=== PATIENT | male | born 1955 | race Caucasian/White ===

== ENCOUNTER 2018-02-14 08:34 | Emergency (ER) | payer MEDICARE ==
[2018-02-14] MEDS ORDERED: DUONEB 0.5-3 MG/3 ml Neb IH ONE ×2 (09:04→09:37)
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
[2018-02-14 10:41] VITALS: BP 177/90; PULSE 80; O2SAT 97
== END 2018-02-14 10:42 | disposition home or self-care (01) ==
LOC: ED 08:34
DX: S46.911A Strain of unspecified muscle, fascia and tendon at shoulder and upper arm level, right arm, initial encounter (principal); S16.1XXA Strain of muscle, fascia and tendon at neck level, initial encounter; M25.511 Pain in right shoulder; M54.2 Cervicalgia; J44.9 Chronic obstructive pulmonary disease, unspecified; E11.9 Type 2 diabetes mellitus without complications; V47.5XXA Car driver injured in collision with fixed or stationary object in traffic accident, initial encounter; Z79.01 Long term (current) use of anticoagulants; Z79.899 Other long term (current) drug therapy; Z79.4 Long term (current) use of insulin
CPT/HCPCS: 36000; 71045; 72040; 73030; 93005; 94150; 94640; 99284; A9270-GY

== ENCOUNTER 2018-06-28 08:00 | Day surgery (SDC) | payer MEDICARE ==
[2012-05-09 18:02] VITALS: BP 160/90
== END 2018-06-28 08:01 | disposition home or self-care (01) ==
LOC: SDC 08:00
PROVIDERS: ATTEND Family Medicine
DX: Z53.9 Procedure and treatment not carried out, unspecified reason (principal)

== ENCOUNTER 2018-08-27 15:57 | Observation (INO) | payer MEDICARE ==
[2018-08-27] MEDS ORDERED: Zofran 4 MG/2 ML VIAL IV ONE (17:07)
[2018-08-27] MEDS ORDERED: Pepcid 20 MG VIAL IV ONE ×2 (17:07→17:22)
[2018-08-27] MEDS ORDERED: Sodium Chloride 0.9% 1000 ML 1,000 ML IV STA ×2 (17:07→18:44)
--- NOTE | 2018-08-27 17:12 | ERPHSYRPT ---
- History of Present Illness Time Seen by Provider: 08/27/18 16:44 Historian: patient Exam Limitations: no limitations Patient Subjective Stated Complaint: sudden onset diarrhea since last night.. EMS states ther was diarrhea all over the bathroom at his home Triage Nursing Assessment: alert and in no distress.. generalized abdominal pain. diarrhea starting since last night. has been around his grandkids who have had the same. + BSx4. Physician History: C/o diffuse abdominal cramps, and diarrhea, nausea since last night, he denies fever, chills, bloody or black stools, no urinary complaints. Timing/Duration: yesterday Activities at Onset: none Quality: cramping Abdominal Pain Onset Location: generalized abdomen Pain Radiation: no radiation Severity of Pain-Max: severe Severity of Pain-Current: moderate Modifying Factors: Improves With: nothing Associated Symptoms: diarrhea, loss of appetite, nausea Previous symptoms: no prior history Allergies/Adverse Reactions: Penicillins Allergy (Severe, Verified 02/06/16 09:55) Hives morphine Adverse Reaction (Mild, Verified 02/06/16 09:55) "makes me loopy" Home Medications: Divalproex Sodium [Depakote] 250 mg PO BID 08/06/15 [History] Clopidogrel Bisulfate 75 mg [PLAVIX 75 MG Tablet] 75 mg PO DAILY 02/06/16 [History] HydrALAzine HCL 25 MG TAB [Apresoline 25 MG TABLET] 25 mg PO TID 02/06/16 [History] Insulin Aspart [Novolog Flexpen] 5 unit SQ TID 02/06/16 [History] Levothyroxine Sodium 25 Mcg [Synthroid 25 Mcg] 25 mcg PO DAILY 02/06/16 [ History] Magnesium Oxide 400 mg [Mag-Ox 400] 400 mg PO BID 02/06/16 [History] Aspirin [Aspirin EC] 81 mg PO DAILY 02/14/18 [History] Hx Tetanus, Diphtheria Vaccination/Date Given: Yes Hx Influenza Vaccination/Date Given: Yes Hx Pneumococcal Vaccination/Date Given: No - Review of Systems Constitutional: No Symptoms Ears, Nose, & Throat: No Symptoms Respiratory: No Symptoms Cardiac: No Symptoms Abdominal/Gastrointestinal: Abdominal Pain, Nausea, Diarrhea Genitourinary Symptoms: No Symptoms Musculoskeletal: No Symptoms Skin: No Symptoms Neurological: No Symptoms All Other Systems: Reviewed and Negative - Past Medical History Pertinent Past Medical History: Yes Neurological History: Stroke ENT History: No Pertinent History Cardiac History: Hypertension, Other Respiratory History: No Pertinent History Endocrine Medical History: Diabetes Type II Musculoskeletal History: No Pertinent History GI Medical History: No Pertinent History, Gallbladder Disease History: No Pertinent History Psycho-Social History: Depression Male Reproductive Disorders: No Pertinent History Other Medical History: He notes 2 CVA two days in a row. CABG 5x in 1999 - Past Surgical History Past Surgical History: Yes Neuro Surgical History: Neurological Surgery Cardiac: CABG Respiratory: No Pertinent History Gastrointestinal: Cholecystectomy Genitourinary: No Pertinent History Musculoskeletal: No Pertinent History Male Surgical History: No Pertinent History - Social History Smoking Status: Never smoker How long have you smoked: years Exposure to second hand smoke: No Drug Use: none Patient Lives Alone: No - Nursing Vital Signs Nursing Vital Signs: Initial Vital Signs Temperature 98.4 F 08/27/18 16:03 Pulse Rate 63 08/27/18 16:03 Respiratory Rate 18 08/27/18 16:03 Blood Pressure 114/70 08/27/18 16:03 O2 Sat by Pulse Oximetry 96 08/27/18 16:03 Pain Scale Pain Intensity 0 - Physical Exam General Appearance: no apparent distress Eye Exam: eyes nml inspection Ears, Nose, Throat Exam: normal ENT inspection, pharynx normal Neck Exam: normal inspection, non-tender, supple, No JVD Respiratory Exam: normal breath sounds, lungs clear, airway intact, No chest tenderness Cardiovascular Exam: regular rate/rhythm, normal heart sounds, normal peripheral pulses, capillary refill <2 sec, No murmur Gastrointestinal/Abdomen Exam: soft, normal bowel sounds, tenderness (diffuse), No distention, No mass, No guarding, No ecchymosis, No pulsatile mass, No rebound, No hernia, No organomegaly Back Exam: normal inspection, No CVA tenderness, No vertebral tenderness Extremity Exam: normal inspection Neurologic Exam: alert, oriented x 3, cooperative, normal mood/affect Skin Exam: normal color, warm, dry, No rash Lymphatic Exam: No adenopathy SpO2 Interpretation: normal SpO2: 96 O2 Delivery: Room Air - Course Nursing assessment & vital signs reviewed: Yes - CT Exams Abdomen/Pelvis CT Interpretation: Tele-radiologist Report, Other (colitis) Ordered Tests: Active Orders 24 hr Category Date Time Status ABDOMEN AND PELVIS W/0 CONTRAS [CT] Stat Exams 08/27/18 17:08 Taken CBC W DIFF Stat Lab 08/27/18 17:34 Completed CMP Stat Lab 08/27/18 17:34 Completed LIPASE Stat Lab 08/27/18 17:34 Completed Lactic Acid Stat Lab 08/27/18 17:07 Completed Occult Blood, Other Screening Stat Lab 08/27/18 18:09 Completed UA W/RFX UR CULTURE Stat Lab 08/27/18 18:09 Completed Urine Triage Profile Stat Lab 08/27/18 18:09 Completed Medication Summary Generic Name Dose Route Start Last Admin Trade Name Freq PRN Reason Stop Dose Admin Potassium Chloride 20 meq in 100 mls @ 50 mls/hr 08/27/18 18:23 08/27/18 18: 50 Potassium Chloride 20 Meq In Water 100ml IV 08/27/18 20:22 50 mls/hr STAT ONE Administration Sodium Chloride 1,000 mls @ 999 mls/hr 08/27/18 18:44 08/27/18 18:50 Sodium Chloride 0.9% 1000 Ml IV 08/27/18 19:44 999 mls/hr .Q1H1M STA Administration Metronidazole 500 mg in 100 mls @ 200 mls/hr 08/27/18 19:29 Flagyl 500 Mg Ivpb IV 08/27/18 19:58 STAT STA Levofloxacin/Dextrose 500 mg in 100 mls @ 100 mls/hr 08/27/18 19:29 Levofloxacin 500mg/100ml D5w IV 08/27/18 20:28 STAT STA Discontinued Medications Generic Name Dose Route Start Last Admin Trade Name Freq PRN Reason Stop Dose Admin Famotidine 20 mg 08/27/18 17:07 08/27/18 17:27 Pepcid 20 Mg Vial IV 08/27/18 17:08 20 mg STAT ONE Administration Famotidine Confirm 08/27/18 17:22 Pepcid 20 Mg Vial Administered 08/27/18 17:23 Dose 20 mg IV .STK-MED ONE Sodium Chloride 1,000 mls @ 999 mls/hr 08/27/18 17:07 08/27/18 18:28 Sodium Chloride 0.9% 1000 Ml IV 08/27/18 18:07 Infused .Q1H1M STA Infusion Sodium Chloride Confirm 08/27/18 17:22 Sodium Chloride 0.9% 1000 Ml Administered 08/27/18 17:23 Dose 1,000 mls @ ud .ROUTE .STK-MED ONE Sodium Chloride Confirm 08/27/18 18:46 Sodium Chloride 0.9% 1000 Ml Administered 08/27/18 18:47 Dose 1,000 mls @ ud .ROUTE .STK-MED ONE Potassium Chloride Confirm 08/27/18 18:46 Potassium Chloride 20 Meq In Water 100ml Administered 08/27/18 18:47 Dose 100 mls @ ud IV .STK-MED ONE Ondansetron HCl 4 mg 08/27/18 17:07 08/27/18 17:27 Zofran 4 Mg/2 Ml Vial IV 08/27/18 17:08 4 mg STAT ONE Administration Ondansetron HCl Confirm 08/27/18 17:22 Zofran 4 Mg/2 Ml Vial Administered 08/27/18 17:23 Dose 4 mg .ROUTE .STK-MED ONE Lab/Rad Data: Laboratory Result Diagrams 08/27/18 17:34 08/27/18 17:34 Laboratory Results 08/27/18 08/27/18 08/27/18 Range/Units 18:09 18:09 18:09 WBC (4.0-10.5) K/mm3 RBC (4.1-5.6) M/mm3 Hgb (12.5-18.0) gm/dl Hct (42-50) % MCV (78-100) fl MCH (26-32) pg MCHC (32-36) g/dl RDW (11.5-14.0) % Plt Count (150-450) K/mm3 MPV (6-9.5) fl Gran % (36.0-66.0) % Eos # (Auto) (0-0.5) Absolute Lymphs (auto) (1.0-4.6) Absolute Monos (auto) (0.0-1.3) Lymphocytes % (24.0-44.0) % Monocytes % (0.0-12.0) % Eosinophils % (0.00-5.0) % Basophils % (0.0-0.4) % Absolute Granulocytes (1.4-6.9) Basophils # (0-0.4) Sodium (137-145) mmol/L Potassium (3.5-5.1) mmol/L Chloride (98-107) mmol/L Carbon Dioxide (22-30) mmol/L Anion Gap (5-15) MEQ/L BUN (9-20) mg/dL Creatinine (0.66-1.25) mg/dL Estimated GFR ML/MIN Glucose (74-106) mg/dL Lactic Acid (0.4-2.0) Calcium (8.4-10.2) mg/dL Total Bilirubin (0.2-1.3) mg/dL AST (17-59) U/L ALT (0-50) U/L Alkaline Phosphatase (38-126) U/L Serum Total Protein (6.3-8.2) g/dL Albumin (3.5-5.0) g/dL Lipase (23-300) U/L Urine Color DARK YELLOW (YELLOW) Urine Appearance SLIGHTLY CLOUDY (CLEAR) Urine pH 5.0 (5-6) Ur Specific [place] 1.020 (1.005-1.025) Urine Protein 100 (Negative) Urine Ketones NEGATIVE (NEGATIVE) Urine Blood NEGATIVE (0-5) Hugo/ul Urine Nitrite NEGATIVE (NEGATIVE) Urine Bilirubin NEGATIVE (NEGATIVE) Urine Urobilinogen NEGATIVE (0-1) mg/dL Ur Leukocyte Esterase NEGATIVE (NEGATIVE) Urine WBC (Auto) 0-2 (0-5) /HPF Urine RBC (Auto) 0-2 (0-2) /HPF U Hyaline Cast (Auto) 11-25 (0-2) /LPF U Epithel Cells (Auto) NONE (FEW) /HPF Urine Bacteria (Auto) RARE (NEGATIVE) /HPF Urine Mucus (Auto) SLIGHT (NEGATIVE) /HPF Urine Culture Reflexed NO (NO) Urine Glucose NEGATIVE (NEGATIVE) mg/dL Stool Occult Blood NEGATIVE (Negative) Urine Opiates Level NEGATIVE (NEGATIVE) Ur Methadone NEGATIVE (NEGATIVE) Urine Barbiturates NEGATIVE (NEGATIVE) Ur Phencyclidine (PCP) NEGATIVE (NEGATIVE) Urine Amphetamine NEGATIVE (NEGATIVE) U Benzodiazepine Level NEGATIVE (NEGATIVE) Urine Cocaine NEGATIVE (NEGATIVE) Urine Marijuana (THC) NEGATIVE (NEGATIVE) 08/27/18 08/27/18 08/27/18 Range/Units 17:34 17:34 17:07 WBC 5.4 (4.0-10.5) K/mm3 RBC 4.39 (4.1-5.6) M/mm3 Hgb 13.3 (12.5-18.0) gm/dl Hct 38.5 L (42-50) % MCV 87.7 (78-100) fl MCH 30.3 (26-32) pg MCHC 34.5 (32-36) g/dl RDW 12.7 (11.5-14.0) % Plt Count 167 (150-450) K/mm3 MPV 10.9 H (6-9.5) fl Gran % 77.7 H (36.0-66.0) % Eos # (Auto) 0.08 (0-0.5) Absolute Lymphs (auto) 0.62 L (1.0-4.6) Absolute Monos (auto) 0.50 (0.0-1.3) Lymphocytes % 11.4 L (24.0-44.0) % Monocytes % 9.2 (0.0-12.0) % Eosinophils % 1.5 (0.00-5.0) % Basophils % 0.2 (0.0-0.4) % Absolute Granulocytes 4.22 (1.4-6.9) Basophils # 0.01 (0-0.4) Sodium 138 (137-145) mmol/L Potassium 3.1 L (3.5-5.1) mmol/L Chloride 101 (98-107) mmol/L Carbon Dioxide 25 (22-30) mmol/L Anion Gap 14.9 (5-15) MEQ/L BUN 39 H (9-20) mg/dL Creatinine 1.69 H (0.66-1.25) mg/dL Estimated GFR 43.6 ML/MIN Glucose 143 H (74-106) mg/dL Lactic Acid 1.3 (0.4-2.0) Calcium 8.8 (8.4-10.2) mg/dL Total Bilirubin 0.50 (0.2-1.3) mg/dL AST 18 (17-59) U/L ALT 14 (0-50) U/L Alkaline Phosphatase 73 (38-126) U/L Serum Total Protein 7.1 (6.3-8.2) g/dL Albumin 4.0 (3.5-5.0) g/dL Lipase 32 (23-300) U/L Urine Color (YELLOW) Urine Appearance (CLEAR) Urine pH (5-6) Ur Specific [place] (1.005-1.025) Urine Protein (Negative) Urine Ketones (NEGATIVE) Urine Blood (0-5) Hugo/ul Urine Nitrite (NEGATIVE) Urine Bilirubin (NEGATIVE) Urine Urobilinogen (0-1) mg/dL Ur Leukocyte Esterase (NEGATIVE) Urine WBC (Auto) (0-5) /HPF Urine RBC (Auto) (0-2) /HPF U Hyaline Cast (Auto) (0-2) /LPF U Epithel Cells (Auto) (FEW) /HPF Urine Bacteria (Auto) (NEGATIVE) /HPF Urine Mucus (Auto) (NEGATIVE) /HPF Urine Culture Reflexed (NO) Urine Glucose (NEGATIVE) mg/dL Stool Occult Blood (Negative) Urine Opiates Level (NEGATIVE) Ur Methadone (NEGATIVE) Urine Barbiturates (NEGATIVE) Ur Phencyclidine (PCP) (NEGATIVE) Urine Amphetamine (NEGATIVE) U Benzodiazepine Level (NEGATIVE) Urine Cocaine (NEGATIVE) Urine Marijuana (THC) (NEGATIVE) - Progress Progress: improved Progress Note: 08/27/18 19:35 We reviewed his results, he was started on iv Potassium replacement, saline bolus besides Zofran, also iv Flagyl and Levaquin, called Dr Page, discussed his results and his current condition, he agreed to admit him for observation. Patient and his family was informed and agreed. Discussed with : Camilo Will see patient in: hospital (observation) Counseled pt/family regarding: lab results, diagnosis, rad results - Departure Departure Disposition: Observation Clinical Impression: Colitis, Hypokalemia, Dehydration Condition: Stable Critical Care Time: No Referrals: [facility] [employer] [Primary Care Provider] -
[2018-08-27] MEDS ORDERED: Zofran 4 MG/2 ML VIAL ONE (17:22)
[2018-08-27] MEDS ORDERED: Sodium Chloride 0.9% 1000 ML 1,000 ML ONE ×2 (17:22→18:46)
[2018-08-27 17:38] LABS: BASOPHIL % 0.2 % (0.0-0.4); Basophil (Absolute #) 0.01 (0-0.4); Eosinophil % 1.5 % (0.00-5.0); Eosinophil (Absolute #) 0.08 (0-0.5); Granulocyte Absolute (ANC) 4.22 (1.4-6.9); Granulocytes % 77.7 % (36.0-66.0); Hematocrit 38.5 % (42-50); Hemoglobin 13.3 gm/dl (12.5-18.0); Lymphocyte (Absolute #) 0.62 (1.0-4.6); Lymphocytes % 11.4 % (24.0-44.0); Mean Cell Volume 87.7 fl (78-100); Mean Corpuscular Hemoglobin 30.3 pg (26-32); Mean Corpuscular Hgb Concent. 34.5 g/dl (32-36); Mean Platelet Volume 10.9 fl (6-9.5); Monocytes % 9.2 % (0.0-12.0); Platelet Count 167 K/mm3 (150-450); Red Blood Count 4.39 M/mm3 (4.1-5.6); Red Cell Distribution Width 12.7 % (11.5-14.0); White Blood Count 5.4 K/mm3 (4.0-10.5)
[2018-08-27 17:49] LABS: ANION GAP 14.9 MEQ/L (5-15); BILIRUBIN,TOTAL 0.5 mg/dL (0.2-1.3); Calcium 8.8 mg/dL (8.4-10.2); Creatinine 1 1.69 mg/dL (0.66-1.25); Potassium 3.1 mmol/L (3.5-5.1); Total Protein 7.1 g/dL (6.3-8.2)
[2018-08-27 18:16] LABS: Appearance SLIGHTLY CLOUDY (CLEAR); Bacteria RARE /HPF (NEGATIVE); Bilirubin NEGATIVE (NEGATIVE); Blood NEGATIVE Ery/ul (0-5); Glucose NEGATIVE (NEGATIVE); Ketones NEGATIVE (NEGATIVE); Leukocyte Esterase NEGATIVE (NEGATIVE); Mucus SLIGHT /HPF (NEGATIVE); Nitrite NEGATIVE (NEGATIVE); Protein,Urine Dip 100 (Negative); RBC 0-2 /HPF (0-2); Urobilinogen NEGATIVE mg/dL (0-1); WBC 0-2 /HPF (0-5)
[2018-08-27] MEDS ORDERED: POTASSIUM CHLORIDE 20 mEq IN WATER 100ML 20 MEQ/100 ML BAG IV ONE (18:23)
[2018-08-27 18:28] LABS: Amphetamine,Urine NEGATIVE (NEGATIVE); Barbiturate,Urine NEGATIVE (NEGATIVE); Benzodiazepine,Urine NEGATIVE (NEGATIVE); Cocaine,Urine NEGATIVE (NEGATIVE); Methadone,Urine NEGATIVE (NEGATIVE); Opiate,Urine NEGATIVE (NEGATIVE); PCP,Urine NEGATIVE (NEGATIVE); THC,Urine NEGATIVE (NEGATIVE)
[2018-08-27] MEDS ORDERED: POTASSIUM CHLORIDE 20 mEq IN WATER 100ML 100 ML IV ONE (18:46)
[2018-08-27] MEDS ORDERED: FLAGYL 500 MG IVPB 500 MG/100 ML BAG IV STA (19:29)
[2018-08-27] MEDS ORDERED: Levofloxacin 500MG/100ML D5W 500 MG/100 ML BAG IV STA (19:29)
[2018-08-27] MEDS ORDERED: Neurontin 100 MG PO ONE (19:33)
[2018-08-27] MEDS ORDERED: NovoLOG Insulin SQ PRN (19:37)
[2018-08-27] MEDS ORDERED: Zofran 4 MG/2 ML VIAL IV PRN (19:37)
[2018-08-27] MEDS ORDERED: Sodium Chloride 0.9% 1000 ML 1,000 ML IV SCH (19:45)
[2018-08-27] MEDS ORDERED: Levofloxacin 500MG/100ML D5W 0 MG/0 ML BAG IV ONE (19:52)
[2018-08-27] MEDS: Pepcid 20 MG VIAL IV SCH (20:47)
[2018-08-27] MEDS ORDERED: FLAGYL 500 MG IVPB 500 MG/100 ML BAG IV ONE (22:50)
[2018-08-27] MEDS: Keppra 250 MG PO SCH (22:51)
[2018-08-27] MEDS: FLAGYL 500 MG IVPB 500 MG/100 ML BAG IV SCH (22:51)
[2018-08-28] MEDS ORDERED: POTASSIUM CHLORIDE 20 mEq IN WATER 100ML 20 MEQ/100 ML BAG IV ONE (00:40)
[2018-08-28] MEDS: Sodium Chloride 0.9% W/ 20 mEq KCl/LITER 1,000 ML IV SCH ×2 (00:49→11:57)
[2018-08-28] MEDS: FLAGYL 500 MG IVPB 500 MG/100 ML BAG IV SCH ×2 (05:19→11:57)
[2018-08-28 05:57] LABS: BASOPHIL % 0.6 % (0.0-0.4); Basophil (Absolute #) 0.02 (0-0.4); Eosinophil % 3.8 % (0.00-5.0); Eosinophil (Absolute #) 0.12 (0-0.5); Granulocyte Absolute (ANC) 1.62 (1.4-6.9); Granulocytes % 51.6 % (36.0-66.0); Hemoglobin 11.4 gm/dl (12.5-18.0); Lymphocyte (Absolute #) 0.85 (1.0-4.6); Lymphocytes % 27.1 % (24.0-44.0); Mean Corpuscular Hemoglobin 30.4 pg (26-32); Mean Corpuscular Hgb Concent. 34.5 g/dl (32-36); Mean Platelet Volume 11.5 fl (6-9.5); Monocyte (Absolute #) 0.53 (0.0-1.3); Monocytes % 16.9 % (0.0-12.0); Platelet Count 141 K/mm3 (150-450); Red Blood Count 3.75 M/mm3 (4.1-5.6); Red Cell Distribution Width 12.5 % (11.5-14.0); White Blood Count 3.1 K/mm3 (4.0-10.5)
[2018-08-28 06:06] LABS: ALKALINE PHOSPHATASE 56 U/L (38-126); ANION GAP 10.9 MEQ/L (5-15); BLOOD UREA NITROGEN 33 mg/dL (9-20); CHLORIDE 109 mmol/L (98-107); Calcium 7.7 mg/dL (8.4-10.2); Carbon Dioxide 21 mmol/L (22-30); Creatinine 1 1.22 mg/dL (0.66-1.25); Glucose 88 mg/dL (74-106); Potassium 3.4 mmol/L (3.5-5.1); SGOT/AST 14 U/L (17-59); SGPT/ALT 10 U/L (0-50); SODIUM 138 mmol/L (137-145); Total Protein 5.9 g/dL (6.3-8.2)
--- NOTE | 2018-08-28 08:35 | PCM.HP ---
History of Present Illness - Chief Complaint Chief Complaint: Colitis; Hypokalemia; Dehydration History of Present Illness: is a 62 year old male who presented to the ER with a several day history of severe diarrhea, he states it has been present for 4-5 days, no fever , no abd pain, no vomiting, no blood in the stool. has not had diarrhea overnight since arrival, has been NPO. - Review of Systems Constitutional: No Fever, No Chills Cardiac: No Chest Pain, No Edema, No Syncope Abdominal/Gastrointestinal: Diarrhea, No Nausea, No Vomiting Genitourinary Symptoms: No Dysuria Skin: No Rash All Other Systems: Reviewed and Negative Medications & Allergies Home Medications: Home Medication List Carvedilol [Coreg] 25 mg PO BID #0 tablet 08/08/15 [Rx Confirmed 08/28/18] Chlorthalidone 25 mg PO DAILY #30 tablet 08/08/15 [Rx Confirmed 08/28/18] Lisinopril [Zestril] 40 mg PO DAILY #30 tablet 08/08/15 [Rx Confirmed 08/28/18] Metformin HCl 500 mg [Glucophage 500 MG] 1,000 mg PO BID #0 tablet [Rx Confirmed 08/28/18] Clopidogrel Bisulfate 75 mg [PLAVIX 75 MG Tablet] 75 mg PO DAILY 02/06/16 [History Confirmed 08/28/18] Insulin Aspart [Novolog Flexpen] 5 unit SQ TID 02/06/16 [History Confirmed 08/28] Aspirin [Aspirin EC] 81 mg PO DAILY 02/14/18 [History Confirmed 08/28/18] Atorvastatin Calcium [Lipitor] 40 mg PO HS 08/28/18 [History Confirmed 08/28/18] Escitalopram Oxalate [Lexapro] 20 mg PO DAILY 08/28/18 [History Confirmed ] Levetiracetam 500 mg PO BID 08/28/18 [History Confirmed 08/28/18] Levothyroxine Sodium 50 Mcg [Synthroid 50 Mcg] 50 mcg PO DAILY 08/28/18 [ History Confirmed 08/28/18] Allergies/Adverse Reactions: Allergies Allergy/AdvReac Type Severity Reaction Status Date / Time Penicillins Allergy Severe Hives Verified 04/06/19 20:34 morphine AdvReac Mild Verified 08/27/18 20:34 - Past Medical History Past Medical History: Yes Neurological History: Stroke ENT History: No Pertinent History Cardiac History: Hypertension, Other Respiratory History: No Pertinent History Endocrine Medical History: Diabetes Type II Musculoskelatal History: No Pertinent History GI Medical History: Gallbladder Disease History: No Pertinent History Pyscho-Social History: Depression Male Reproductive Disorders: No Pertinent History Comment: He notes 2 CVA two days in a row. CABG 5x in 1999 - Past Surgical History Past Surgical History: Yes Neuro Surgical History: Neurological Surgery Cardiac History: CABG Respiratory Surgery: No Pertinent History GI Surgical History: Cholecystectomy Genitourinary Surgical Hx: No Pertinent History Musculskeletal Surgical Hx: No Pertinent History Male Surgical History: No Pertinent History - Social History Smoking Status: Never smoker How long have you smoked: years Exposure to second hand smoke: No Alcohol: None Drug Use: none - Physical Exam Vital Signs: Vital Signs - 24 hr Temp Pulse Resp BP Pulse Ox 08/28/18 07:34 97.5 F 62 18 133/70 96 08/28/18 04:00 98.3 F 60 18 139/69 93 L 08/28/18 00:00 20 08/27/18 23:52 97.6 F 60 20 112/62 93 L 08/27/18 20:10 98.3 F 65 18 146/74 94 L 08/27/18 20:00 18 08/27/18 19:37 96 08/27/18 18:58 72 18 141/79 95 08/27/18 18:05 68 16 128/69 93 L 08/27/18 17:13 64 115/62 94 L 08/27/18 16:03 98.4 F 63 18 114/70 96 General Appearance: no apparent distress, alert Respiratory Exam: normal breath sounds, lungs clear, No respiratory distress Cardiovascular Exam: regular rate/rhythm, normal heart sounds, normal peripheral pulses Gastrointestinal/Abdomen Exam: soft, normal bowel sounds, No tenderness, No mass Extremity Exam: normal inspection, normal range of motion, pelvis stable Skin Exam: normal color, warm, dry, No rash Results - Labs Lab/Micro Results: Lab Results-Last 24 Hours 08/27/18 08/27/18 08/27/18 Range/Units 17:07 17:34 17:34 WBC 5.4 (4.0-10.5) K/mm3 RBC 4.39 (4.1-5.6) M/mm3 Hgb 13.3 (12.5-18.0) gm/dl Hct 38.5 L (42-50) % MCV 87.7 (78-100) fl MCH 30.3 (26-32) pg MCHC 34.5 (32-36) g/dl RDW 12.7 (11.5-14.0) % Plt Count 167 (150-450) K/mm3 MPV 10.9 H (6-9.5) fl Gran % 77.7 H (36.0-66.0) % Eos # (Auto) 0.08 (0-0.5) Absolute Lymphs (auto) 0.62 L (1.0-4.6) Absolute Monos (auto) 0.50 (0.0-1.3) Lymphocytes % 11.4 L (24.0-44.0) % Monocytes % 9.2 (0.0-12.0) % Eosinophils % 1.5 (0.00-5.0) % Basophils % 0.2 (0.0-0.4) % Absolute Granulocytes 4.22 (1.4-6.9) Basophils # 0.01 (0-0.4) Sodium 138 (137-145) mmol/L Potassium 3.1 L (3.5-5.1) mmol/L Chloride 101 (98-107) mmol/L Carbon Dioxide 25 (22-30) mmol/L Anion Gap 14.9 (5-15) MEQ/L BUN 39 H (9-20) mg/dL Creatinine 1.69 H (0.66-1.25) mg/dL Estimated GFR 43.6 ML/MIN Glucose 143 H (74-106) mg/dL Lactic Acid 1.3 (0.4-2.0) Calcium 8.8 (8.4-10.2) mg/dL Total Bilirubin 0.50 (0.2-1.3) mg/dL AST 18 (17-59) U/L ALT 14 (0-50) U/L Alkaline Phosphatase 73 (38-126) U/L Serum Total Protein 7.1 (6.3-8.2) g/dL Albumin 4.0 (3.5-5.0) g/dL Lipase 32 (23-300) U/L Urine Color (YELLOW) Urine Appearance (CLEAR) Urine pH (5-6) Ur Specific [place] (1.005-1.025) Urine Protein (Negative) Urine Ketones (NEGATIVE) Urine Blood (0-5) Hugo/ul Urine Nitrite (NEGATIVE) Urine Bilirubin (NEGATIVE) Urine Urobilinogen (0-1) mg/dL Ur Leukocyte Esterase (NEGATIVE) Urine WBC (Auto) (0-5) /HPF Urine RBC (Auto) (0-2) /HPF U Hyaline Cast (Auto) (0-2) /LPF U Epithel Cells (Auto) (FEW) /HPF Urine Bacteria (Auto) (NEGATIVE) /HPF Urine Mucus (Auto) (NEGATIVE) /HPF Urine Culture Reflexed (NO) Urine Glucose (NEGATIVE) mg/dL Stool Occult Blood (Negative) Urine Opiates Level (NEGATIVE) Ur Methadone (NEGATIVE) Urine Barbiturates (NEGATIVE) Ur Phencyclidine (PCP) (NEGATIVE) Urine Amphetamine (NEGATIVE) U Benzodiazepine Level (NEGATIVE) Urine Cocaine (NEGATIVE) Urine Marijuana (THC) (NEGATIVE) 08/27/18 08/27/18 08/27/18 Range/Units 18:09 18:09 18:09 WBC (4.0-10.5) K/mm3 RBC (4.1-5.6) M/mm3 Hgb (12.5-18.0) gm/dl Hct (42-50) % MCV (78-100) fl MCH (26-32) pg MCHC (32-36) g/dl RDW (11.5-14.0) % Plt Count (150-450) K/mm3 MPV (6-9.5) fl Gran % (36.0-66.0) % Eos # (Auto) (0-0.5) Absolute Lymphs (auto) (1.0-4.6) Absolute Monos (auto) (0.0-1.3) Lymphocytes % (24.0-44.0) % Monocytes % (0.0-12.0) % Eosinophils % (0.00-5.0) % Basophils % (0.0-0.4) % Absolute Granulocytes (1.4-6.9) Basophils # (0-0.4) Sodium (137-145) mmol/L Potassium (3.5-5.1) mmol/L Chloride (98-107) mmol/L Carbon Dioxide (22-30) mmol/L Anion Gap (5-15) MEQ/L BUN (9-20) mg/dL Creatinine (0.66-1.25) mg/dL Estimated GFR ML/MIN Glucose (74-106) mg/dL Lactic Acid (0.4-2.0) Calcium (8.4-10.2) mg/dL Total Bilirubin (0.2-1.3) mg/dL AST (17-59) U/L ALT (0-50) U/L Alkaline Phosphatase (38-126) U/L Serum Total Protein (6.3-8.2) g/dL Albumin (3.5-5.0) g/dL Lipase (23-300) U/L Urine Color DARK YELLOW (YELLOW) Urine Appearance SLIGHTLY CLOUDY (CLEAR) Urine pH 5.0 (5-6) Ur Specific [place] 1.020 (1.005-1.025) Urine Protein 100 (Negative) Urine Ketones NEGATIVE (NEGATIVE) Urine Blood NEGATIVE (0-5) Hugo/ul Urine Nitrite NEGATIVE (NEGATIVE) Urine Bilirubin NEGATIVE (NEGATIVE) Urine Urobilinogen NEGATIVE (0-1) mg/dL Ur Leukocyte Esterase NEGATIVE (NEGATIVE) Urine WBC (Auto) 0-2 (0-5) /HPF Urine RBC (Auto) 0-2 (0-2) /HPF U Hyaline Cast (Auto) 11-25 (0-2) /LPF U Epithel Cells (Auto) NONE (FEW) /HPF Urine Bacteria (Auto) RARE (NEGATIVE) /HPF Urine Mucus (Auto) SLIGHT (NEGATIVE) /HPF Urine Culture Reflexed NO (NO) Urine Glucose NEGATIVE (NEGATIVE) mg/dL Stool Occult Blood NEGATIVE (Negative) Urine Opiates Level NEGATIVE (NEGATIVE) Ur Methadone NEGATIVE (NEGATIVE) Urine Barbiturates NEGATIVE (NEGATIVE) Ur Phencyclidine (PCP) NEGATIVE (NEGATIVE) Urine Amphetamine NEGATIVE (NEGATIVE) U Benzodiazepine Level NEGATIVE (NEGATIVE) Urine Cocaine NEGATIVE (NEGATIVE) Urine Marijuana (THC) NEGATIVE (NEGATIVE) 08/27/18 08/28/18 08/28/18 Range/Units 23:42 05:05 05:05 WBC 3.1 L (4.0-10.5) K/mm3 RBC 3.75 L (4.1-5.6) M/mm3 Hgb 11.4 L (12.5-18.0) gm/dl Hct 33.0 L (42-50) % MCV 88.0 (78-100) fl MCH 30.4 (26-32) pg MCHC 34.5 (32-36) g/dl RDW 12.5 (11.5-14.0) % Plt Count 141 L (150-450) K/mm3 MPV 11.5 H (6-9.5) fl Gran % 51.6 (36.0-66.0) % Eos # (Auto) 0.12 (0-0.5) Absolute Lymphs (auto) 0.85 L (1.0-4.6) Absolute Monos (auto) 0.53 (0.0-1.3) Lymphocytes % 27.1 (24.0-44.0) % Monocytes % 16.9 H (0.0-12.0) % Eosinophils % 3.8 (0.00-5.0) % Basophils % 0.6 (0.0-0.4) % Absolute Granulocytes 1.62 (1.4-6.9) Basophils # 0.02 (0-0.4) Sodium 138 (137-145) mmol/L Potassium 3.0 L 3.4 L (3.5-5.1) mmol/L Chloride 109 H (98-107) mmol/L Carbon Dioxide 21 L (22-30) mmol/L Anion Gap 10.9 (5-15) MEQ/L BUN 33 H (9-20) mg/dL Creatinine 1.22 (0.66-1.25) mg/dL Estimated GFR > 60.0 ML/MIN Glucose 88 (74-106) mg/dL Lactic Acid (0.4-2.0) Calcium 7.7 L (8.4-10.2) mg/dL Total Bilirubin 0.40 (0.2-1.3) mg/dL AST 14 L (17-59) U/L ALT 10 (0-50) U/L Alkaline Phosphatase 56 (38-126) U/L Serum Total Protein 5.9 L (6.3-8.2) g/dL Albumin 3.0 L (3.5-5.0) g/dL Lipase (23-300) U/L Urine Color (YELLOW) Urine Appearance (CLEAR) Urine pH (5-6) Ur Specific [place] (1.005-1.025) Urine Protein (Negative) Urine Ketones (NEGATIVE) Urine Blood (0-5) Hugo/ul Urine Nitrite (NEGATIVE) Urine Bilirubin (NEGATIVE) Urine Urobilinogen (0-1) mg/dL Ur Leukocyte Esterase (NEGATIVE) Urine WBC (Auto) (0-5) /HPF Urine RBC (Auto) (0-2) /HPF U Hyaline Cast (Auto) (0-2) /LPF U Epithel Cells (Auto) (FEW) /HPF Urine Bacteria (Auto) (NEGATIVE) /HPF Urine Mucus (Auto) (NEGATIVE) /HPF Urine Culture Reflexed (NO) Urine Glucose (NEGATIVE) mg/dL Stool Occult Blood (Negative) Urine Opiates Level (NEGATIVE) Ur Methadone (NEGATIVE) Urine Barbiturates (NEGATIVE) Ur Phencyclidine (PCP) (NEGATIVE) Urine Amphetamine (NEGATIVE) U Benzodiazepine Level (NEGATIVE) Urine Cocaine (NEGATIVE) Urine Marijuana (THC) (NEGATIVE) - Radiology Impressions Radiology Exams & Impressions: Radiology Procedures Category Date Time Status ABDOMEN AND PELVIS W/0 CONTRAS [CT] Stat Exams 08/27/18 17:08 Taken Assessment/Plan (1) Colitis Current Visit: Yes Status: Acute Assessment & Plan: continue levaquin and flagyl, advance diet Code(s): K52.9 - NONINFECTIVE GASTROENTERITIS AND COLITIS, UNSPECIFIED (2) Hypokalemia Current Visit: Yes Status: Acute Assessment & Plan: replacing K, up to 3.4 Code(s): E87.6 - HYPOKALEMIA (3) Dehydration Current Visit: Yes Status: Acute Assessment & Plan: replaced volume Code(s): E86.0 - DEHYDRATION
[2018-08-28] MEDS: Pepcid 20 MG VIAL IV SCH (09:15)
[2018-08-28] MEDS: Keppra 250 MG PO SCH (09:15)
[2018-08-28] MEDS ORDERED: MEDICATION INTERVENTION PO SCH (09:30)
--- NOTE | 2018-08-28 09:58 | XRAY ---
Indication: Abdomen pain. Nausea and diarrhea. Multiple contiguous axial images obtained through the abdomen and pelvis without contrast as ordered. Comparison: February 11, 2015. Lung bases demonstrate minimal bibasilar dependent atelectasis. No infiltrate or effusion. Heart is not enlarged. Noncontrasted stomach and bowel loops appear nonobstructed. Normal appendix. Mild fluid-filled colon with some fluid leveling favoring diarrhea. Underlying colitis not completely excluded. No free fluid/air. Again previous cholecystectomy. Remaining liver, pancreas, spleen, adrenal glands, kidneys, ureters, and bladder appear unremarkable for noncontrast exam. There remains moderate aortoiliac calcifications without AAA. Osseous structures intact again with mild degenerative changes throughout the thoracolumbar spine. No ventral or inguinal hernias. Impression: 1. Mild fluid distended colon with fluid leveling favoring diarrhea. Underlying colitis not completely excluded. 2. Remaining CT abdomen/pelvis without contrast exam is negative. Comment: Preliminary interpretation was made by [facility]. No discrepancy. CTDI 16.56
[2018-08-28] MEDS ORDERED: NON-FORMULARY ITEM (Carvedilol [Coreg] 25 MG) PO SCH (10:00)
[2018-08-28] MEDS ORDERED: COREG 12.5 MG PO SCH (10:00)
[2018-08-28] MEDS ORDERED: Levofloxacin 500MG/100ML D5W 500 MG/100 ML BAG IV SCH ×2 (10:00→22:00)
[2018-08-28] MEDS ORDERED: NON-FORMULARY ITEM (Escitalopram Oxalate [Lexapro] 20 MG) PO SCH (10:00)
[2018-08-28] MEDS ORDERED: NON-FORMULARY ITEM (Chlorthalidone [Chlorthalidone] 25 MG) PO SCH (10:00)
[2018-08-28] MEDS ORDERED: PLAVIX 75 MG Tablet PO SCH (10:00)
[2018-08-28] MEDS ORDERED: Zestril 20 MG PO SCH (10:00)
[2018-08-28] MEDS ORDERED: ECOTRIN 81 MG PO SCH (10:00)
[2018-08-28] MEDS ORDERED: SYNTHROID 50 MCG PO SCH (10:00)
[2018-08-28] MEDS ORDERED: Lexapro 10 MG PO SCH (10:00)
[2018-08-28 16:21] VITALS: BP 124/59; PULSE 59; O2SAT 95
[2018-08-28] MEDS ORDERED: KEPPRA 500 MG PO SCH (22:00)
== END 2018-08-28 17:15 | disposition home or self-care (01) ==
LOC: ED 15:57 → MED SURG 20:06
PROVIDERS: ADMIT Family Medicine; ATTEND Family Medicine
DX: K52.9 Noninfective gastroenteritis and colitis, unspecified (principal); E87.6 Hypokalemia; E86.0 Dehydration; E11.9 Type 2 diabetes mellitus without complications; I10 Essential (primary) hypertension; Z79.01 Long term (current) use of anticoagulants; Z79.899 Other long term (current) drug therapy
CPT/HCPCS: 36415; 74176; 80053; 80307; 81001; 82272; 82962; 83605; 83690; 84132; 85025; 96360; 96361; 96365; 96374; 96375; 99285; G0378; J1956; J2405; J3480; A9270-GY

== ENCOUNTER 2019-02-21 10:54 | Emergency (ER) | payer MEDICARE ==
[2019-02-21] MEDS ORDERED: Sodium Chloride 0.9% 1000 ML 1,000 ML IV STA (11:26)
--- NOTE | 2019-02-21 11:26 | ERPHSYRPT ---
- History of Present Illness Time Seen by Provider: 02/21/19 11:05 Source: patient Exam Limitations: no limitations Patient Subjective Stated Complaint: Pt states "I want to end it.". [facility] therapist states that he needs medical clearance for admittance. Triage Nursing Assessment: PT presented alert and oriented X 3, skin pwd Pt ambulates with an upright steady gait, able to speak in clear full sentences. PT tearful, had a pocket knife in his pocket, placed in bag with his clothes. Physician History: 63 y/o diabetic white male presents from [facility] for medical clearance for inpt tx. pt is diabetic and has cadz. he is having suicidal ideation with a plan. pt is depressed. pt states he is going to starve himself and if that does not work he is going to stab himself with his pocket knife. pt denies cp, denies abd pain, and denies soa. Timing/Duration: today Severity of Symptoms-Max: moderate Severity of Symptoms-Current: moderate Context related to: living circumstances Suicidal thoughts: specific plan Associated Symptoms: depressed, frustrated Previous symptoms: same symptoms as today Allergies/Adverse Reactions: Penicillins Allergy (Severe, Verified 08/27/18 20:34) Hives morphine Adverse Reaction (Mild, Verified 08/27/18 20:34) "makes me loopy" Home Medications: Clopidogrel Bisulfate 75 mg [PLAVIX 75 MG Tablet] 75 mg PO DAILY 02/06/16 [History] Insulin Aspart [Novolog Flexpen] 5 unit SQ TID 02/06/16 [History] Aspirin [Aspirin EC] 81 mg PO DAILY 02/14/18 [History] Atorvastatin Calcium [Lipitor] 40 mg PO HS 08/28/18 [History] Escitalopram Oxalate [Lexapro] 20 mg PO DAILY 08/28/18 [History] Levetiracetam 500 mg PO BID 08/28/18 [History] Levothyroxine Sodium 50 Mcg [Synthroid 50 Mcg] 50 mcg PO DAILY 08/28/18 [ History] Hx Tetanus, Diphtheria Vaccination/Date Given: Yes Hx Influenza Vaccination/Date Given: Yes Hx Pneumococcal Vaccination/Date Given: Yes Immunizations Up to Date: Yes - Past Medical History Pertinent Past Medical History: Yes Neurological History: Seizures, Stroke ENT History: No Pertinent History Cardiac History: Coronary Artery Disease, Hypertension, Myocardial Infarction ( [place]) Respiratory History: No Pertinent History Endocrine Medical History: Diabetes Type II, Hypothyroidism Musculoskeletal History: No Pertinent History GI Medical History: Gallbladder Disease History: No Pertinent History Psycho-Social History: Depression Male Reproductive Disorders: No Pertinent History Other Medical History: CABG (2009), Anxiety, Depression - Past Surgical History Past Surgical History: Yes Neuro Surgical History: Neurological Surgery Cardiac: CABG Respiratory: No Pertinent History Gastrointestinal: Cholecystectomy Genitourinary: No Pertinent History Musculoskeletal: No Pertinent History Male Surgical History: No Pertinent History - Social History Smoking Status: Never smoker How long have you smoked: years Exposure to second hand smoke: No Drug Use: none Patient Lives Alone: No - Review of Systems Constitutional: No Symptoms Eyes: No Symptoms Ears, Nose, & Throat: No Symptoms Respiratory: No Symptoms Cardiac: No Symptoms Abdominal/Gastrointestinal: No Symptoms Genitourinary Symptoms: No Symptoms Musculoskeletal: No Symptoms Skin: No Symptoms Neurological: No Symptoms Psychological: No Symptoms Endocrine: No Symptoms Hematologic/Lymphatic: No Symptoms Immunological/Allergic: No Symptoms All Other Systems: Reviewed and Negative - Nursing Vital Signs Nursing Vital Signs: Initial Vital Signs Temperature 98.2 F 02/21/19 11:01 Pulse Rate 57 L 02/21/19 11:01 Respiratory Rate 16 02/21/19 11:01 Blood Pressure 144/79 02/21/19 11:01 O2 Sat by Pulse Oximetry 93 L 02/21/19 11:01 Pain Scale Pain Intensity 0 - Physical Exam General Appearance: no apparent distress Eyes, Ears, Nose, Throat Exam: normal ENT inspection Neck Exam: normal inspection, non-tender, supple, full range of motion Respiratory Exam: normal breath sounds, lungs clear, airway intact, No chest tenderness, No respiratory distress Cardiovascular Exam: regular rate/rhythm, normal heart sounds, normal peripheral pulses Gastrointestinal/Abdominal Exam: soft, normal bowel sounds, No tenderness Extremities Exam: normal inspection, normal range of motion, evidence of injury Current Suicidality: has suicide plan Neurological Exam: alert, normal mood/affect, 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, 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, oriented x 3 Behavior/Eye Contact/Speech: alert & cooperative Thoughts/Hallucinations: normal thought pattern, no apparent hallucination Skin Exam: normal color, warm, dry SpO2 Interpretation: borderline oxygenation SpO2: 93 O2 Delivery: Room Air - Course Nursing assessment & vital signs reviewed: Yes EKG Interpreted by Me: RATE (56), Sinus Rhythm, NORMAL INTERVALS, Right Bundle Branch Block, Other (no sig changes when compared to ekg dated 02/14/18) Ordered Tests: Active Orders 24 hr Category Date Time Status Clean Catch Urine Specimen STAT Care 02/21/19 11:26 Active EKG-ER Only STAT Care 02/21/19 11:26 Active IV Insertion STAT Care 02/21/19 11:26 Active ACETAMINOPHEN Stat Lab 02/21/19 11:38 Completed CBC W DIFF Stat Lab 02/21/19 11:38 Completed CMP Stat Lab 02/21/19 11:38 Completed ETHYL ALCOHOL Stat Lab 02/21/19 11:38 Completed SALICYLATE Stat Lab 02/21/19 11:38 Completed UA W/RFX UR CULTURE Stat Lab 02/21/19 12:24 Completed Urine Triage Profile Stat Lab 02/21/19 12:24 Completed Medication Summary Discontinued Medications Generic Name Dose Route Start Last Admin Trade Name Freq PRN Reason Stop Dose Admin Sodium Chloride 1,000 mls @ 999 mls/hr 02/21/19 11:26 02/21/19 11:40 Sodium Chloride 0.9% 1000 Ml IV 02/21/19 12:26 999 mls/hr .Q1H1M STA Administration Sodium Chloride Confirm 02/21/19 11:37 Sodium Chloride 0.9% 1000 Ml Administered 02/21/19 11:38 Dose 1,000 mls @ ud .ROUTE .STK-MED ONE Lab/Rad Data: Laboratory Result Diagrams 02/21/19 11:38 02/21/19 11:38 Laboratory Results 02/21/19 02/21/19 02/21/19 Range/Units 12:24 12:24 11:38 WBC (4.0-10.5) K/mm3 RBC (4.1-5.6) M/mm3 Hgb (12.5-18.0) gm/dl Hct (42-50) % MCV (78-100) fl MCH (26-32) pg MCHC (32-36) g/dl RDW (11.5-14.0) % Plt Count (150-450) K/mm3 MPV (6-9.5) fl Gran % (36.0-66.0) % Eos # (Auto) (0-0.5) Absolute Lymphs (auto) (1.0-4.6) Absolute Monos (auto) (0.0-1.3) Lymphocytes % (24.0-44.0) % Monocytes % (0.0-12.0) % Eosinophils % (0.00-5.0) % Basophils % (0.0-0.4) % Absolute Granulocytes (1.4-6.9) Basophils # (0-0.4) Sodium 142 (137-145) mmol/L Potassium 4.0 (3.5-5.1) mmol/L Chloride 102 (98-107) mmol/L Carbon Dioxide 28 (22-30) mmol/L Anion Gap 15.7 H (5-15) MEQ/L BUN 31 H (9-20) mg/dL Creatinine 1.39 H (0.66-1.25) mg/dL Estimated GFR 54.5 ML/MIN Glucose 162 H (74-106) mg/dL Calcium 9.8 (8.4-10.2) mg/dL Total Bilirubin 0.90 (0.2-1.3) mg/dL AST 24 (17-59) U/L ALT 26 (0-50) U/L Alkaline Phosphatase 73 (38-126) U/L Serum Total Protein 7.3 (6.3-8.2) g/dL Albumin 4.3 (3.5-5.0) g/dL Urine Color YELLOW (YELLOW) Urine Appearance CLEAR (CLEAR) Urine pH 6.0 (5-6) Ur Specific [place] 1.015 (1.005-1.025) Urine Protein NEGATIVE (Negative) Urine Ketones NEGATIVE (NEGATIVE) Urine Blood NEGATIVE (0-5) Hugo/ul Urine Nitrite NEGATIVE (NEGATIVE) Urine Bilirubin NEGATIVE (NEGATIVE) Urine Urobilinogen NEGATIVE (0-1) mg/dL Ur Leukocyte Esterase NEGATIVE (NEGATIVE) Urine WBC (Auto) NONE (0-5) /HPF Urine RBC (Auto) NONE (0-2) /HPF U Epithel Cells (Auto) NONE (FEW) /HPF Urine Bacteria (Auto) NONE (NEGATIVE) /HPF Urine Mucus (Auto) SLIGHT (NEGATIVE) /HPF Urine Culture Reflexed NO (NO) Urine Glucose NEGATIVE (NEGATIVE) mg/dL Salicylates < 1.0 L (2-20) mg/dL Urine Opiates Level NEGATIVE (NEGATIVE) Ur Methadone NEGATIVE (NEGATIVE) Acetaminophen < 10 L (10-30) ug/ml Urine Barbiturates NEGATIVE (NEGATIVE) Ur Phencyclidine (PCP) NEGATIVE (NEGATIVE) Urine Amphetamine NEGATIVE (NEGATIVE) U Benzodiazepine Level NEGATIVE (NEGATIVE) Urine Cocaine NEGATIVE (NEGATIVE) Urine Marijuana (THC) NEGATIVE (NEGATIVE) Ethyl Alcohol < 10 (0-10) mg/dL 02/21/19 Range/Units 11:38 WBC 4.9 (4.0-10.5) K/mm3 RBC 4.38 (4.1-5.6) M/mm3 Hgb 13.3 (12.5-18.0) gm/dl Hct 38.3 L (42-50) % MCV 87.4 (78-100) fl MCH 30.4 (26-32) pg MCHC 34.7 (32-36) g/dl RDW 12.6 (11.5-14.0) % Plt Count 187 (150-450) K/mm3 MPV 11.2 H (6-9.5) fl Gran % 64.6 (36.0-66.0) % Eos # (Auto) 0.26 (0-0.5) Absolute Lymphs (auto) 0.97 L (1.0-4.6) Absolute Monos (auto) 0.47 (0.0-1.3) Lymphocytes % 20.0 L (24.0-44.0) % Monocytes % 9.7 (0.0-12.0) % Eosinophils % 5.3 H (0.00-5.0) % Basophils % 0.4 (0.0-0.4) % Absolute Granulocytes 3.14 (1.4-6.9) Basophils # 0.02 (0-0.4) Sodium (137-145) mmol/L Potassium (3.5-5.1) mmol/L Chloride (98-107) mmol/L Carbon Dioxide (22-30) mmol/L Anion Gap (5-15) MEQ/L BUN (9-20) mg/dL Creatinine (0.66-1.25) mg/dL Estimated GFR ML/MIN Glucose (74-106) mg/dL Calcium (8.4-10.2) mg/dL Total Bilirubin (0.2-1.3) mg/dL AST (17-59) U/L ALT (0-50) U/L Alkaline Phosphatase (38-126) U/L Serum Total Protein (6.3-8.2) g/dL Albumin (3.5-5.0) g/dL Urine Color (YELLOW) Urine Appearance (CLEAR) Urine pH (5-6) Ur Specific [place] (1.005-1.025) Urine Protein (Negative) Urine Ketones (NEGATIVE) Urine Blood (0-5) Hugo/ul Urine Nitrite (NEGATIVE) Urine Bilirubin (NEGATIVE) Urine Urobilinogen (0-1) mg/dL Ur Leukocyte Esterase (NEGATIVE) Urine WBC (Auto) (0-5) /HPF Urine RBC (Auto) (0-2) /HPF U Epithel Cells (Auto) (FEW) /HPF Urine Bacteria (Auto) (NEGATIVE) /HPF Urine Mucus (Auto) (NEGATIVE) /HPF Urine Culture Reflexed (NO) Urine Glucose (NEGATIVE) mg/dL Salicylates (2-20) mg/dL Urine Opiates Level (NEGATIVE) Ur Methadone (NEGATIVE) Acetaminophen (10-30) ug/ml Urine Barbiturates (NEGATIVE) Ur Phencyclidine (PCP) (NEGATIVE) Urine Amphetamine (NEGATIVE) U Benzodiazepine Level (NEGATIVE) Urine Cocaine (NEGATIVE) Urine Marijuana (THC) (NEGATIVE) Ethyl Alcohol (0-10) mg/dL - Progress Progress: unchanged Progress Note: 02/21/19 13:36 pt stable for transfer to [facility]. per therapist at [place] there is a bed waiting for him. Counseled pt/family regarding: lab results, diagnosis, need for follow-up - Departure Departure Disposition: Transfer Clinical Impression: Suicidal ideation Condition: Stable Critical Care Time: No Referrals: ZA BATISTA NP [Primary Care Provider] -
[2019-02-21] MEDS ORDERED: Sodium Chloride 0.9% 1000 ML 1,000 ML ONE (11:37)
[2019-02-21 11:50] LABS: Absolute Neutrophil Ct (ANC) 3.14 (1.4-6.9); BASOPHIL % 0.4 % (0.0-0.4); Basophil (Absolute #) 0.02 (0-0.4); Eosinophil % 5.3 % (0.00-5.0); Eosinophil (Absolute #) 0.26 (0-0.5); Hematocrit 38.3 % (42-50); Hemoglobin 13.3 gm/dl (12.5-18.0); Lymphocyte (Absolute #) 0.97 (1.0-4.6); Mean Cell Volume 87.4 fl (78-100); Mean Corpuscular Hemoglobin 30.4 pg (26-32); Mean Corpuscular Hgb Concent. 34.7 g/dl (32-36); Mean Platelet Volume 11.2 fl (6-9.5); Monocyte (Absolute #) 0.47 (0.0-1.3); Monocytes % 9.7 % (0.0-12.0); Neutrophil % 64.6 % (36.0-66.0); Platelet Count 187 K/mm3 (150-450); Red Blood Count 4.38 M/mm3 (4.1-5.6); Red Cell Distribution Width 12.6 % (11.5-14.0); White Blood Count 4.9 K/mm3 (4.0-10.5)
[2019-02-21 12:55] LABS: Appearance CLEAR (CLEAR); Bilirubin NEGATIVE (NEGATIVE); Blood NEGATIVE Ery/ul (0-5); Glucose NEGATIVE (NEGATIVE); Ketones NEGATIVE (NEGATIVE); Leukocyte Esterase NEGATIVE (NEGATIVE); Mucus SLIGHT /HPF (NEGATIVE); Nitrite NEGATIVE (NEGATIVE); Protein,Urine Dip NEGATIVE (Negative); Specific Gravity 1.015 (1.005-1.025); Urobilinogen NEGATIVE mg/dL (0-1)
[2019-02-21 13:12] LABS: ALBUMIN 4.3 g/dL (3.5-5.0); ALKALINE PHOSPHATASE 73 U/L (38-126); ANION GAP 15.7 MEQ/L (5-15); BLOOD UREA NITROGEN 31 mg/dL (9-20); CHLORIDE 102 mmol/L (98-107); Calcium 9.8 mg/dL (8.4-10.2); Carbon Dioxide 28 mmol/L (22-30); Creatinine 1 1.39 mg/dL (0.66-1.25); Glucose 162 mg/dL (74-106); SGOT/AST 24 U/L (17-59); SGPT/ALT 26 U/L (0-50); SODIUM 142 mmol/L (137-145); Total Protein 7.3 g/dL (6.3-8.2)
[2019-02-21 13:13] LABS: ACETAMINOPHEN < 10 ug/ml (10-30); ETHYL ALCOHOL < 10 mg/dL (0-10); SALICYLATE < 1.0 mg/dL (2-20)
[2019-02-21 13:29] LABS: Amphetamine,Urine NEGATIVE (NEGATIVE); Barbiturate,Urine NEGATIVE (NEGATIVE); Benzodiazepine,Urine NEGATIVE (NEGATIVE); Cocaine,Urine NEGATIVE (NEGATIVE); Methadone,Urine NEGATIVE (NEGATIVE); Opiate,Urine NEGATIVE (NEGATIVE); PCP,Urine NEGATIVE (NEGATIVE); THC,Urine NEGATIVE (NEGATIVE)
[2019-02-21 13:48] VITALS: BP 158/74; PULSE 80; O2SAT 98
== END 2019-02-21 16:13 ==
LOC: ED 10:54
DX: R45.851 Suicidal ideations (principal); I25.10 Atherosclerotic heart disease of native coronary artery without angina pectoris; I10 Essential (primary) hypertension; I25.2 Old myocardial infarction; E11.9 Type 2 diabetes mellitus without complications; E03.9 Hypothyroidism, unspecified
CPT/HCPCS: 36000; 36415; 80053; 80307; 81001; 85025; 93005; 96360; 99285; G0480; G0481

== ENCOUNTER 2019-03-26 11:08 | Emergency (ER) | payer MEDICARE ==
[2019-03-26 11:13] VITALS: BP 169/97
[2019-03-26 11:31] LABS: Absolute Neutrophil Ct (ANC) 3.51 (1.4-6.9); BASOPHIL % 0.5 % (0.0-0.4); Basophil (Absolute #) 0.03 (0-0.4); Eosinophil % 7.4 % (0.00-5.0); Eosinophil (Absolute #) 0.44 (0-0.5); Hematocrit 39.1 % (42-50); Hemoglobin 13.9 gm/dl (12.5-18.0); Lymphocyte (Absolute #) 1.51 (1.0-4.6); Lymphocytes % 25.4 % (24.0-44.0); Mean Cell Volume 85.9 fl (78-100); Mean Corpuscular Hemoglobin 30.5 pg (26-32); Mean Corpuscular Hgb Concent. 35.5 g/dl (32-36); Mean Platelet Volume 11.2 fl (6-9.5); Monocyte (Absolute #) 0.45 (0.0-1.3); Monocytes % 7.6 % (0.0-12.0); Neutrophil % 59.1 % (36.0-66.0); Platelet Count 203 K/mm3 (150-450); Red Blood Count 4.55 M/mm3 (4.1-5.6); Red Cell Distribution Width 12.6 % (11.5-14.0); White Blood Count 5.9 K/mm3 (4.0-10.5)
--- NOTE | 2019-03-26 11:41 | ERPHSYRPT ---
- History of Present Illness Time Seen by Provider: 03/26/19 11:10 Source: patient Exam Limitations: no limitations Patient Subjective Stated Complaint: Pt has been feeling really down and thinks about killing himself without a plan, thinks about everything with running thoughts continuously Triage Nursing Assessment: Pt brought in by EMS due to severe depression and he just couldn't take it any more, he had stayed in bed for 3 days, hypertensive, tearful, states that he just doesn't want to be around anymore, lives with daughter and stresses about everything, was in [facility] a couple of weeks ago and stated that they never spoke to him one on one while he was there and that is what he thinks he needs Physician History: Patient has a history of major depression with suicide ideation and plan in the past who was recently was approximately one month ago who has worsened over the past week in regard to suicidal ideation. Timing/Duration: week(s) (4), worse (over past week) Severity of Symptoms-Max: severe Severity of Symptoms-Current: severe Context related to: living circumstances Associated Symptoms: depressed, suicidal ideation, No angry, No agitated, No anxiety, No confused, No frustrated, No hostile, No hallucinating, No impaired concentration, No ingestion, No injury, No insomnia, No paranoid Previous symptoms: same symptoms as today, recent hospitalization, recently treated Allergies/Adverse Reactions: Penicillins Allergy (Severe, Verified 03/26/19 11:26) Hives morphine Adverse Reaction (Mild, Verified 03/26/19 11:26) "makes me loopy" Home Medications: Clopidogrel Bisulfate 75 mg [PLAVIX 75 MG Tablet] 75 mg PO DAILY 02/06/16 [History] Insulin Aspart [Novolog Flexpen] 5 unit SQ TID 02/06/16 [History] Aspirin [Aspirin EC] 81 mg PO DAILY 02/14/18 [History] Atorvastatin Calcium [Lipitor] 40 mg PO HS 08/28/18 [History] Escitalopram Oxalate [Lexapro] 20 mg PO DAILY 08/28/18 [History] Levetiracetam 500 mg PO BID 08/28/18 [History] Levothyroxine Sodium 50 Mcg [Synthroid 50 Mcg] 50 mcg PO DAILY 08/28/18 [ History] Hx Tetanus, Diphtheria Vaccination/Date Given: Yes Hx Influenza Vaccination/Date Given: Yes Hx Pneumococcal Vaccination/Date Given: Yes - Past Medical History Pertinent Past Medical History: Yes Neurological History: Seizures, Stroke ENT History: No Pertinent History Cardiac History: Coronary Artery Disease, Hypertension, Myocardial Infarction ( [place]) Respiratory History: No Pertinent History Endocrine Medical History: Diabetes Type II, Hypothyroidism Musculoskeletal History: No Pertinent History GI Medical History: Gallbladder Disease History: No Pertinent History Psycho-Social History: Depression Male Reproductive Disorders: No Pertinent History Other Medical History: CABG (2009), Anxiety, Depression - Past Surgical History Past Surgical History: Yes Neuro Surgical History: Neurological Surgery Cardiac: CABG Respiratory: No Pertinent History Gastrointestinal: Cholecystectomy Genitourinary: No Pertinent History Musculoskeletal: No Pertinent History Male Surgical History: No Pertinent History - Social History Smoking Status: Never smoker How long have you smoked: years Exposure to second hand smoke: No Drug Use: none Patient Lives Alone: No - Review of Systems Constitutional: No Fever, No Chills, No Fatigue Eyes: No Eye Pain, No Vision Changes Ears, Nose, & Throat: No Epistaxis, No Mouth Swelling, No Painful Swallowing Respiratory: No Cough, No Dyspnea Cardiac: No Chest Pain, No Edema, No Palpitations, No Syncope Abdominal/Gastrointestinal: No Abdominal Pain, No Nausea, No Vomiting Genitourinary Symptoms: No Dysuria, No Hematuria, No Flank Pain Musculoskeletal: No Back Pain, No Neck Pain Skin: No Pruritis, No Rash Neurological: No Dizziness, No Focal Weakness, No Paralysis, No Tremors Psychological: Depression, Suicidal Ideations, No Alcohol Abuse, No Anxiety, No Homicidal Ideations, No Hallucinations, No Memory Loss Endocrine: No Excessive Sweating Hematologic/Lymphatic: No Easy Bleeding, No Easy Bruising All Other Systems: Reviewed and Negative - Nursing Vital Signs Nursing Vital Signs: Initial Vital Signs Temperature 99.1 F 03/26/19 11:09 Pulse Rate 65 03/26/19 11:09 Blood Pressure 169/97 03/26/19 11:09 O2 Sat by Pulse Oximetry 96 03/26/19 11:09 Pain Scale Pain Intensity 0 - Physical Exam General Appearance: no apparent distress, alert Eyes, Ears, Nose, Throat Exam: normal ENT inspection, TMs normal, pharynx normal , moist mucous membranes Neck Exam: normal inspection, non-tender, supple, full range of motion, No Brudzinski, No Kernig's, No meningismus Respiratory Exam: normal breath sounds, lungs clear, airway intact, No chest tenderness, No respiratory distress, No diminished breath sounds, No accessory muscle use, No prolonged expirations, No crackles/rales, No rhonchi, No wheezing , No stridor Cardiovascular Exam: regular rate/rhythm, normal heart sounds, normal peripheral pulses, capillary refill <2 sec Gastrointestinal/Abdominal Exam: soft, normal bowel sounds, No tenderness, No distention, No mass, No rebound Extremities Exam: normal inspection, normal range of motion, No evidence of injury, No edema, No tenderness Peripheral Pulses: dorsalis-pedis (R): 2+, dorsalis-pedis (L): 2+ Neurological Exam: alert, calm, collar stitcher II-XII nml as tested, oriented x 3, depressed affect Appearance: appropriate appearance, appropriate insight Behavior/Eye Contact/Speech: alert & cooperative, cooperative, good eye contact , normal speech Thoughts/Hallucinations: normal thought pattern, no apparent hallucination, No flight of ideas Skin Exam: normal color, warm, dry, No rash, No petechiae, No cyanosis SpO2 Interpretation: normal SpO2: 96 O2 Delivery: Room Air - Course Nursing assessment & vital signs reviewed: Yes EKG Interpreted by Me: RATE, Sinus Rhythm, NORMAL AXIS, NORMAL INTERVALS, Right Bundle Branch Block, NORMAL ST-T, Other (no change from EKG from 02/21/2019) Ordered Tests: Active Orders 24 hr Category Date Time Status EKG-ER Only STAT Care 03/26/19 11:11 Active ACETAMINOPHEN Stat Lab 03/26/19 11:29 Completed CBC W DIFF Stat Lab 03/26/19 11:29 Completed CMP Stat Lab 03/26/19 11:29 Completed ETHYL ALCOHOL Stat Lab 03/26/19 11:29 Completed MAGNESIUM Stat Lab 03/26/19 11:29 Completed SALICYLATE Stat Lab 03/26/19 11:29 Completed TSH [TSH, 3RD Generation] Stat Lab 03/26/19 11:29 Completed UA W/RFX UR CULTURE Stat Lab 03/26/19 12:21 Completed Urine Triage Profile Stat Lab 03/26/19 12:21 Completed Medication Summary Generic Name Dose Route Start Last Admin Trade Name Freq PRN Reason Stop Dose Admin Magnesium Oxide 400 mg 03/26/19 12:18 03/26/19 12:23 Mag-Ox 400 PO 04/25/19 12:17 400 mg DAILY JAM Administration Lab/Rad Data: Laboratory Result Diagrams 03/26/19 11:29 03/26/19 11:29 Laboratory Results 03/26/19 03/26/19 03/26/19 Range/Units 12:21 12:21 11:29 WBC (4.0-10.5) K/mm3 RBC (4.1-5.6) M/mm3 Hgb (12.5-18.0) gm/dl Hct (42-50) % MCV (78-100) fl MCH (26-32) pg MCHC (32-36) g/dl RDW (11.5-14.0) % Plt Count (150-450) K/mm3 MPV (6-9.5) fl Gran % (36.0-66.0) % Eos # (Auto) (0-0.5) Absolute Lymphs (auto) (1.0-4.6) Absolute Monos (auto) (0.0-1.3) Lymphocytes % (24.0-44.0) % Monocytes % (0.0-12.0) % Eosinophils % (0.00-5.0) % Basophils % (0.0-0.4) % Absolute Granulocytes (1.4-6.9) Basophils # (0-0.4) Sodium (137-145) mmol/L Potassium (3.5-5.1) mmol/L Chloride (98-107) mmol/L Carbon Dioxide (22-30) mmol/L Anion Gap (5-15) MEQ/L BUN (9-20) mg/dL Creatinine (0.66-1.25) mg/dL Estimated GFR ML/MIN Glucose (74-106) mg/dL Calcium (8.4-10.2) mg/dL Magnesium 1.3 L (1.6-2.3) mg/dL Total Bilirubin (0.2-1.3) mg/dL AST (17-59) U/L ALT (0-50) U/L Alkaline Phosphatase (38-126) U/L Serum Total Protein (6.3-8.2) g/dL Albumin (3.5-5.0) g/dL TSH 3rd Generation 1.720 (0.47-4.68) mIU/L Urine Color YELLOW (YELLOW) Urine Appearance CLEAR (CLEAR) Urine pH 5.0 (5-6) Ur Specific Harrison 1.019 (1.005-1.025) Urine Protein 30 (Negative) Urine Ketones NEGATIVE (NEGATIVE) Urine Blood NEGATIVE (0-5) Hugo/ul Urine Nitrite NEGATIVE (NEGATIVE) Urine Bilirubin NEGATIVE (NEGATIVE) Urine Urobilinogen 2 (0-1) mg/dL Ur Leukocyte Esterase NEGATIVE (NEGATIVE) Urine WBC (Auto) 0-2 (0-5) /HPF Urine RBC (Auto) NONE (0-2) /HPF U Epithel Cells (Auto) NONE (FEW) /HPF Urine Bacteria (Auto) NONE (NEGATIVE) /HPF Urine Mucus (Auto) SLIGHT (NEGATIVE) /HPF Urine Culture Reflexed NO (NO) Urine Glucose 50 (NEGATIVE) mg/dL Salicylates (2-20) mg/dL Urine Opiates Level NEGATIVE (NEGATIVE) Ur Methadone NEGATIVE (NEGATIVE) Acetaminophen (10-30) ug/ml Urine Barbiturates NEGATIVE (NEGATIVE) Ur Phencyclidine (PCP) NEGATIVE (NEGATIVE) Urine Amphetamine NEGATIVE (NEGATIVE) U Benzodiazepine Level NEGATIVE (NEGATIVE) Urine Cocaine NEGATIVE (NEGATIVE) Urine Marijuana (THC) NEGATIVE (NEGATIVE) Ethyl Alcohol (0-10) mg/dL 03/26/19 03/26/19 Range/Units 11:29 11:29 WBC 5.9 (4.0-10.5) K/mm3 RBC 4.55 (4.1-5.6) M/mm3 Hgb 13.9 (12.5-18.0) gm/dl Hct 39.1 L (42-50) % MCV 85.9 (78-100) fl MCH 30.5 (26-32) pg MCHC 35.5 (32-36) g/dl RDW 12.6 (11.5-14.0) % Plt Count 203 (150-450) K/mm3 MPV 11.2 H (6-9.5) fl Gran % 59.1 (36.0-66.0) % Eos # (Auto) 0.44 (0-0.5) Absolute Lymphs (auto) 1.51 (1.0-4.6) Absolute Monos (auto) 0.45 (0.0-1.3) Lymphocytes % 25.4 (24.0-44.0) % Monocytes % 7.6 (0.0-12.0) % Eosinophils % 7.4 H (0.00-5.0) % Basophils % 0.5 (0.0-0.4) % Absolute Granulocytes 3.51 (1.4-6.9) Basophils # 0.03 (0-0.4) Sodium 143 (137-145) mmol/L Potassium 3.5 (3.5-5.1) mmol/L Chloride 103 (98-107) mmol/L Carbon Dioxide 29 (22-30) mmol/L Anion Gap 13.9 (5-15) MEQ/L BUN 22 H (9-20) mg/dL Creatinine 1.05 (0.66-1.25) mg/dL Estimated GFR > 60.0 ML/MIN Glucose 159 H (74-106) mg/dL Calcium 9.9 (8.4-10.2) mg/dL Magnesium (1.6-2.3) mg/dL Total Bilirubin 0.70 (0.2-1.3) mg/dL AST 16 L (17-59) U/L ALT 12 (0-50) U/L Alkaline Phosphatase 71 (38-126) U/L Serum Total Protein 7.3 (6.3-8.2) g/dL Albumin 4.2 (3.5-5.0) g/dL TSH 3rd Generation (0.47-4.68) mIU/L Urine Color (YELLOW) Urine Appearance (CLEAR) Urine pH (5-6) Ur Specific Harrison (1.005-1.025) Urine Protein (Negative) Urine Ketones (NEGATIVE) Urine Blood (0-5) Hugo/ul Urine Nitrite (NEGATIVE) Urine Bilirubin (NEGATIVE) Urine Urobilinogen (0-1) mg/dL Ur Leukocyte Esterase (NEGATIVE) Urine WBC (Auto) (0-5) /HPF Urine RBC (Auto) (0-2) /HPF U Epithel Cells (Auto) (FEW) /HPF Urine Bacteria (Auto) (NEGATIVE) /HPF Urine Mucus (Auto) (NEGATIVE) /HPF Urine Culture Reflexed (NO) Urine Glucose (NEGATIVE) mg/dL Salicylates < 1.0 L (2-20) mg/dL Urine Opiates Level (NEGATIVE) Ur Methadone (NEGATIVE) Acetaminophen < 10 L (10-30) ug/ml Urine Barbiturates (NEGATIVE) Ur Phencyclidine (PCP) (NEGATIVE) Urine Amphetamine (NEGATIVE) U Benzodiazepine Level (NEGATIVE) Urine Cocaine (NEGATIVE) Urine Marijuana (THC) (NEGATIVE) Ethyl Alcohol < 10 (0-10) mg/dL - Progress Progress: unchanged Progress Note: 03/26/19 11:54 Patient is medically cleared. 03/26/19 15:18 Patient has not had any change from the time he came into the emergency department. Discussed with Dr.: Other (@15:15, Dr Sapna Hensley at [facility] in [place], [place] accepted the patient for transfer) Counseled pt/family regarding: lab results, diagnosis, need for follow-up - Departure Departure Disposition: Transfer ([facility] in [place], [place]) Clinical Impression: Depression with suicidal ideation, Hypomagnesemia, Essential hypertension Condition: Fair Critical Care Time: No Referrals: ZA BATISTA, HOOP RIVETER [Primary Care Provider] - 04/03/19
[2019-03-26 11:46] LABS: ACETAMINOPHEN < 10 ug/ml (10-30); ALBUMIN 4.2 g/dL (3.5-5.0); ALKALINE PHOSPHATASE 71 U/L (38-126); ANION GAP 13.9 MEQ/L (5-15); BLOOD UREA NITROGEN 22 mg/dL (9-20); CHLORIDE 103 mmol/L (98-107); Calcium 9.9 mg/dL (8.4-10.2); Carbon Dioxide 29 mmol/L (22-30); Creatinine 1 1.05 mg/dL (0.66-1.25); ETHYL ALCOHOL < 10 mg/dL (0-10); Glucose 159 mg/dL (74-106); Potassium 3.5 mmol/L (3.5-5.1); SALICYLATE < 1.0 mg/dL (2-20); SGOT/AST 16 U/L (17-59); SGPT/ALT 12 U/L (0-50); SODIUM 143 mmol/L (137-145); Total Protein 7.3 g/dL (6.3-8.2)
[2019-03-26 12:16] LABS: MAGNESIUM 1.3 mg/dL (1.6-2.3); TSH, 3RD Generation 1.72 mIU/L (0.47-4.68)
[2019-03-26 12:21] VITALS: PULSE 70
[2019-03-26] MEDS ORDERED: MAG-OX 400 ONE (12:22)
[2019-03-26] MEDS: MAG-OX 400 PO SCH (12:23)
[2019-03-26 12:25] VITALS: O2SAT 96
[2019-03-26 12:42] LABS: Appearance CLEAR (CLEAR); Bilirubin NEGATIVE (NEGATIVE); Blood NEGATIVE Ery/ul (0-5); Glucose 50 mg/dL (NEGATIVE); Ketones NEGATIVE (NEGATIVE); Leukocyte Esterase NEGATIVE (NEGATIVE); Mucus SLIGHT /HPF (NEGATIVE); Nitrite NEGATIVE (NEGATIVE); Protein,Urine Dip 30 (Negative); Specific Gravity 1.019 (1.005-1.025); Urobilinogen 2 mg/dL (0-1); WBC 0-2 /HPF (0-5)
[2019-03-26 12:55] LABS: Amphetamine,Urine NEGATIVE (NEGATIVE); Barbiturate,Urine NEGATIVE (NEGATIVE); Benzodiazepine,Urine NEGATIVE (NEGATIVE); Cocaine,Urine NEGATIVE (NEGATIVE); Methadone,Urine NEGATIVE (NEGATIVE); Opiate,Urine NEGATIVE (NEGATIVE); PCP,Urine NEGATIVE (NEGATIVE); THC,Urine NEGATIVE (NEGATIVE)
== END 2019-03-26 16:00 ==
LOC: ED 11:08
DX: F32.9 Major depressive disorder, single episode, unspecified (principal); R45.851 Suicidal ideations; E83.42 Hypomagnesemia; I10 Essential (primary) hypertension
CPT/HCPCS: 36415; 80053; 80307; 81001; 83735; 84443; 85025; 93005; 99285; G0480; G0481; A9270-GY

== ENCOUNTER 2019-07-18 13:56 | Emergency (ER) | payer MEDICARE ==
--- NOTE | 2019-07-18 14:16 | ERPHSYRPT ---
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 Physician History: Is a 63-year-old [id number] male with a past medical history significant for a CVA reportedly 2 years ago in which he had right hemiparesis and speech difficulties that is since recovered presents with a chief complaint of slurred speech. Onset reportedly was yesterday when he awoke at 0700 am. The slurred speech started spontaneously and has not resolved since that time. His brother went to check on him today and noticed that his speech was slurred and decided to bring him to the emergency department for further evaluation and management. This brought to his primary care provider for a follow-up appointment today and upon noticing the slurred speech he was sent to the emergency department for further evaluation and management for possible stroke. The patient denies headache, nausea, vomiting, changes in his visual acuity and hemiparesis in addition the paresthesias. Of any new medications nor has he been sick recently. Of note, the patient is a poor historian. Patient reportedly took a baby aspirin today and has not taken any anticoagulants. He reportedly was evaluated for his prior stroke at [facility]. Timing/Duration: day(s) (2) Associated Symptoms: No nausea, No vomiting, No fever, No headaches, No syncope , No seizure Allergies/Adverse Reactions: Penicillins Allergy (Severe, Verified 03/26/19 11:26) Hives morphine Adverse Reaction (Mild, Verified 03/26/19 11:26) "makes me loopy" Home Medications: Clopidogrel Bisulfate 75 mg [PLAVIX 75 MG Tablet] 75 mg PO DAILY 02/06/16 [History] Insulin Aspart [Novolog Flexpen] 5 unit SQ TID 02/06/16 [History] Aspirin [Aspirin EC] 81 mg PO DAILY 02/14/18 [History] Atorvastatin Calcium [Lipitor] 40 mg PO HS 08/28/18 [History] Escitalopram Oxalate [Lexapro] 20 mg PO DAILY 08/28/18 [History] Levetiracetam 500 mg PO BID 08/28/18 [History] Levothyroxine Sodium 50 Mcg [Synthroid 50 Mcg] 50 mcg PO DAILY 08/28/18 [ History] Hx Tetanus, Diphtheria Vaccination/Date Given: Yes Hx Influenza Vaccination/Date Given: Yes Hx Pneumococcal Vaccination/Date Given: Yes Immunizations Up to Date: Yes - Review of Systems Constitutional: No Fever, No Chills, No Fatigue Eyes: No Symptoms Ears, Nose, & Throat: No Symptoms Respiratory: No Symptoms Cardiac: No Symptoms Abdominal/Gastrointestinal: No Symptoms Genitourinary Symptoms: No Symptoms Musculoskeletal: No Symptoms Skin: No Symptoms Neurological: Speech Changes, No Focal Weakness, No Gait Changes, No Headache, No Seizure, No Sensory Changes Psychological: No Symptoms Endocrine: No Symptoms Hematologic/Lymphatic: No Symptoms Immunological/Allergic: No Symptoms All Other Systems: Reviewed and Negative - Past Medical History Pertinent Past Medical History: Yes Neurological History: Seizures, Stroke ENT History: No Pertinent History Cardiac History: Coronary Artery Disease, Hypertension, Myocardial Infarction ( [place]) Respiratory History: No Pertinent History Endocrine Medical History: Diabetes Type II, Hypothyroidism Musculoskeletal History: No Pertinent History GI Medical History: Gallbladder Disease History: No Pertinent History Psycho-Social History: Depression Male Reproductive Disorders: No Pertinent History Other Medical History: CABG (2009), Anxiety, Depression - Past Surgical History Past Surgical History: Yes Neuro Surgical History: Neurological Surgery Cardiac: CABG Respiratory: No Pertinent History Gastrointestinal: Cholecystectomy Genitourinary: No Pertinent History Musculoskeletal: No Pertinent History Male Surgical History: No Pertinent History - Social History Smoking Status: Never smoker How long have you smoked: years Exposure to second hand smoke: Yes Drug Use: none Patient Lives Alone: Yes - Nursing Vital Signs Nursing Vital Signs: Initial Vital Signs Temperature 97.8 F 07/18/19 14:00 Pulse Rate 56 L 07/18/19 14:00 Respiratory Rate 18 07/18/19 14:00 Blood Pressure 177/86 07/18/19 14:00 O2 Sat by Pulse Oximetry 98 07/18/19 14:00 Pain Scale Pain Intensity 0 - Physical Exam General Appearance: no apparent distress, alert Eye Exam: PERRL/EOMI, No scleral icterus, No pale conjunctivae, No photophobia, No EOM palsy/anisocoria Ears, Nose, Throat Exam: normal ENT inspection, TMs normal, pharynx normal, moist mucous membranes, TM abnormal (L), No pharyngeal erythema, No tonsillar exudate Neck Exam: normal inspection, non-tender, supple Respiratory Exam: normal breath sounds, lungs clear, No chest tenderness, No respiratory distress Cardiovascular Exam: regular rate/rhythm, normal heart sounds, normal peripheral pulses, other (Well-healed sternotomy scar noted to midsternum), No murmur, No friction rub, No gallop Gastrointestinal/Abdomen Exam: soft, No tenderness, No distention Male Genitalia Exam: normal genitalia Rectal Exam: deferred Back Exam: normal inspection Extremity Exam: normal inspection, other (Hide Stretcher Hand strength 4+ bilaterally, hip flexion 4+ bilaterally, Dorsiflexion and plantar flexion 4+ bilaterally. No pronator drift. Normal heel to ivy) Neurologic Exam: alert, oriented x 3, cooperative, correspondence clerk II-XII nml as tested ( Mild dysarthria), normal mood/affect, sensation nml, slurred speech, other (No ankle clonus, NIH was calculated to be a 1 for mild to moderate dysarthria slurring, but can be understood), No motor deficits, No sensory deficit, No disoriented, No confusion, No agitation, No uncooperative, No intoxicated appearance, No facial droop, No aphasia, No EOM palsy Skin Exam: normal color, warm, dry, No rash SpO2 Interpretation: normal SpO2: 98 O2 Delivery: Room Air - Course Nursing assessment & vital signs reviewed: Yes EKG Interpreted by Me: Sinus Patrick, Right Bundle Branch Block, Other (Nuclear rate 54 bpmPR interval 160 msQRS duration 156 msQT/QTc 42/457 ms EKG is similar in appearance to EKG dated August 06, 2015) - CT Exams Head CT Interpretation: Other (Age-appropriate global atrophy, mild periventricular degenerative micro-ischemia bilaterally, old basal ganglia lacunar infarct, old left thalamus lacunar infarct, and left vertex encephalomalacia with overlying craniectomy. Stable nonacute senile brain with chronic features) Ordered Tests: Active Orders 24 hr Category Date Time Status EKG-ER Only STAT Care 07/18/19 14:20 Active IV Insertion STAT Care 07/18/19 14:20 Active NPO (ED) STAT Care 07/18/19 14:20 Active HEAD WITHOUT CONTRAST [CT] Stat Exams 07/18/19 14:21 Completed MRI BRAIN W/O CONTRAST [MRI] Stat Exams 07/18/19 14:19 Completed BMP Stat Lab 07/18/19 14:53 Completed CBC W DIFF Stat Lab 07/18/19 14:53 Completed PROTIME WITH INR Stat Lab 07/18/19 14:53 Completed PTT Stat Lab 07/18/19 14:53 Completed TSH, 3RD Generation Stat Lab 07/18/19 14:53 Completed Medication Summary Discontinued Medications Generic Name Dose Route Start Last Admin Trade Name Vicky PRN Reason Stop Dose Admin Aspirin 162 mg 07/18/19 17:37 07/18/19 18:01 Baby Aspirin 81 Mg Chew PO 07/18/19 17:38 162 mg STAT ONE Administration Aspirin Confirm 07/18/19 18:00 Aspirin 600 Mg Administered 07/18/19 18:01 Dose 600 mg .ROUTE .STK-MED ONE Aspirin Confirm 07/18/19 18:03 Baby Aspirin 81 Mg Chew Administered 07/18/19 18:04 Dose 162 mg .ROUTE .STK-MED ONE Lab/Rad Data: Laboratory Result Diagrams 07/18/19 14:53 07/18/19 14:53 Laboratory Results 07/18/19 07/18/19 07/18/19 Range/Units 14:53 14:53 14:53 WBC 7.4 (4.0-10.5) K/mm3 RBC 4.96 (4.1-5.6) M/mm3 Hgb 14.8 (12.5-18.0) gm/dl Hct 42.5 (42-50) % MCV 85.7 (78-100) fl MCH 29.8 (26-32) pg MCHC 34.8 (32-36) g/dl RDW 12.9 (11.5-14.0) % Plt Count 207 (150-450) K/mm3 MPV 11.1 H (7.5-11.0) fl Gran % 70.5 H (36.0-66.0) % Eos # (Auto) 0.10 (0-0.5) Absolute Lymphs (auto) 1.47 (1.0-4.6) Absolute Monos (auto) 0.58 (0.0-1.3) Lymphocytes % 19.9 L (24.0-44.0) % Monocytes % 7.9 (0.0-12.0) % Eosinophils % 1.4 (0.00-5.0) % Basophils % 0.3 (0.0-0.4) % Absolute Granulocytes 5.20 (1.4-6.9) Basophils # 0.02 (0-0.4) PT 12.1 (8.83-12.87) SECONDS INR 1.07 (0.8-3.0) APTT 31.4 (24.1-36.1) SECONDS Sodium 140 (137-145) mmol/L Potassium 3.4 L (3.5-5.1) mmol/L Chloride 102 (98-107) mmol/L Carbon Dioxide 31 H (22-30) mmol/L Anion Gap 10.8 (5-15) MEQ/L BUN 33 H (9-20) mg/dL Creatinine 1.33 H (0.66-1.25) mg/dL Estimated GFR 57.4 ML/MIN Glucose 114 H (74-106) mg/dL Calcium 9.8 (8.4-10.2) mg/dL TSH 3rd Generation 2.250 (0.47-4.68) mIU/L - Progress Progress: unchanged Progress Note: 07/18/19 16:58 The MRI brain without contrast impression: Progressive worsening degenerative micro-ischemic bilaterally with new 5 mm acute micro-ischemia involving the brainstem/harrison. No acute hemorrhage/mass- effect. New finding old right basal granular ocular infarcts and new left vertex encephalomalacia with surrounding gliosis and associated craniectomy. 07/18/19 17:04 Days the patient with his MRI results and that he had evidence of a new stroke. I informed him that he would need to be transferred given that we do not have neurology services at this location. He requested to be transferred to [facility] given that is where he was admitted during his last stroke. 07/18/19 17:35 I spoke to the hospitalist, Dr. Irizarry, at [facility] who agreed to accept the patient for transfer. The patient will be transferred to the medical floor, which I feel is appropriate at this point given his CVA is well over 24 hrs 07/18/19 20:21 Counseled pt/family regarding: lab results, diagnosis, rad results - Departure Departure Disposition: Transfer ([facility]) Clinical Impression: CVA (cerebral vascular accident), Slurred speech Condition: Stable Critical Care Time: No Referrals: ZA BATISTA, [employer] [Primary Care Provider] -
--- NOTE | 2019-07-18 14:49 | XRAY ---
Dictation: Slurred speech. Multiple contiguous axial images obtained through the head without contrast. Comparison: August 06, 2015. Again age-appropriate global atrophy, mild periventricular degenerative micro-ischemia bilaterally, old basil ganglia lacunar infarct, old left thalamus lacunar infarct, and left vertex encephalomalacia with overlying craniectomy. No acute intracranial hemorrhage, abnormal extra-axial fluid collection, or mass effect. Fourth ventricle is midline. Remaining bony calvarium intact. Visualized paranasal sinuses and mastoid air cells are clear. Impression: Stable nonacute senile brain with chronic features as detailed.
[2019-07-18 14:52] LABS: BASOPHIL % 0.3 % (0.0-0.4); Basophil (Absolute #) 0.02 (0-0.4); Eosinophil % 1.4 % (0.00-5.0); Hematocrit 42.5 % (42-50); Hemoglobin 14.8 gm/dl (12.5-18.0); Lymphocyte (Absolute #) 1.47 (1.0-4.6); Lymphocytes % 19.9 % (24.0-44.0); Mean Cell Volume 85.7 fl (78-100); Mean Corpuscular Hemoglobin 29.8 pg (26-32); Mean Corpuscular Hgb Concent. 34.8 g/dl (32-36); Mean Platelet Volume 11.1 fl (7.5-11.0); Monocyte (Absolute #) 0.58 (0.0-1.3); Monocytes % 7.9 % (0.0-12.0); Neutrophil % 70.5 % (36.0-66.0); Platelet Count 207 K/mm3 (150-450); Red Blood Count 4.96 M/mm3 (4.1-5.6); Red Cell Distribution Width 12.9 % (11.5-14.0); White Blood Count 7.4 K/mm3 (4.0-10.5)
[2019-07-18 14:58] LABS: INR 1.07 (0.8-3.0); PROTIME 12.1 SECONDS (8.83-12.87)
[2019-07-18 15:01] LABS: PTT 31.4 SECONDS (24.1-36.1)
[2019-07-18 15:34] LABS: ANION GAP 10.8 MEQ/L (5-15); Calcium 9.8 mg/dL (8.4-10.2); Creatinine 1 1.33 mg/dL (0.66-1.25); Potassium 3.4 mmol/L (3.5-5.1); TSH, 3RD Generation 2.25 mIU/L (0.47-4.68)
--- NOTE | 2019-07-18 16:43 | XRAY ---
Indication: Slurred speech since yesterday. Right-sided weakness. History of seizures. Sagittal, coronal, and axial MRI brain was performed without contrast using T1, T2, FLAIR, diffusion, and ADC sequences. Comparison: September 03, 2011. There is again age-appropriate global atrophy with progressive worsening moderate periventricular degenerative micro-ischemia signal bilaterally. New finding old right basal ganglia lacunar infarcts and small focus left vertex encephalomalacia with minimal surrounding scoliosis from craniectomy. Diffusion images demonstrates new left brain stem/harrison 5 mm focus restricted signal favoring acute ischemia. No acute intracranial hemorrhage, hydrocephalus, or mass effect. Fourth ventricle is midline. 7/8 cranial nerve complex bilaterally symmetric. Normal flow-void signal within the major intracerebral circulation. Normal appearing craniocervical junction and sella turcica. Paranasal sinuses are clear. Impression: 1. Progressive worsening degenerative micro-ischemia bilaterally with new 5 mm acute micro-ischemia involving the brainstem/harrison. No acute hemorrhage/mass effect. 2. New finding old right basal ganglia lacunar infarcts and new left vertex encephalomalacia with surrounding gliosis and associated craniectomy.
[2019-07-18] MEDS ORDERED: ASPIRIN 600 MG ONE (18:00)
[2019-07-18] MEDS: BABY ASPIRIN 81 MG CHEW PO ONE (18:01)
[2019-07-18] MEDS ORDERED: BABY ASPIRIN 81 MG CHEW ONE (18:03)
[2019-07-18 18:35] VITALS: BP 158/87; PULSE 54; O2SAT 98
== END 2019-07-18 18:49 | disposition short-term general hospital (02) ==
LOC: ED 13:56
DX: I63.9 Cerebral infarction, unspecified (principal); R47.81 Slurred speech; E11.9 Type 2 diabetes mellitus without complications; E03.9 Hypothyroidism, unspecified; I10 Essential (primary) hypertension; F41.8 Other specified anxiety disorders; Z79.899 Other long term (current) drug therapy; I25.10 Atherosclerotic heart disease of native coronary artery without angina pectoris
CPT/HCPCS: 36000; 36415; 70450; 70551; 80048; 84443; 85025; 85610; 85730; 93005; 99285; A9270-GY

== ENCOUNTER 2021-12-16 20:07 | Emergency (ER) | payer MEDICARE ==
[2021-12-16] MEDS ORDERED: TYLENOL EXTRA STRENGTH 500 MG ONE (21:19)
[2021-12-16] MEDS ORDERED: Adacel Vial IM ONE (21:19)
[2021-12-16] MEDS: TYLENOL EXTRA STRENGTH 500 MG PO ONE (21:21)
[2021-12-16] MEDS: Adacel Vial IM ONE (21:21)
--- NOTE | 2021-12-16 22:00 | ERPHSYRPT ---
- History of Present Illness Patient Subjective Stated Complaint: pt states he fell on the concrete floor and thinks he may have broken his arm. bleeding from lt elbow Triage Nursing Assessment: pt alert and oriented, answers questions. pt back per wheelchair. transfers to stretcher with assist of 2. unsteady gait noted. family states is his normal. skin tears to lt elbow with active bleeding noted. pt holding lt arm against his side and states pain is in his lt shoulder. Allergies/Adverse Reactions: Penicillins Allergy (Severe, Verified 03/26/19 11:26) Hives morphine Adverse Reaction (Mild, Verified 03/26/19 11:26) "makes me loopy" Home Medications: Clopidogrel Bisulfate [PLAVIX 75 MG Tablet] 75 mg PO DAILY 02/06/16 [History] Insulin Aspart [Novolog Flexpen] 5 unit SQ TID 02/06/16 [History] Aspirin [Aspirin EC] 81 mg PO DAILY 02/14/18 [History] Atorvastatin Calcium [Lipitor] 40 mg PO HS 08/28/18 [History] Escitalopram Oxalate [Lexapro] 20 mg PO DAILY 08/28/18 [History] Levothyroxine Sodium 50 Mcg [Synthroid 50 Mcg] 50 mcg PO DAILY 08/28/18 [History] levETIRAcetam [Levetiracetam] 500 mg PO BID 08/28/18 [History] Hx Tetanus, Diphtheria Vaccination/Date Given: No Hx Influenza Vaccination/Date Given: No Hx Pneumococcal Vaccination/Date Given: No Immunizations Up to Date: Yes Travel Risk - International Travel Have you traveled outside of the country in past 3 weeks: No - Coronavirus Screening Are you exhibiting any of the following symptoms?: No Close contact with a COVID-19 positive Pt in past 14-21 Days: No - Vaccine Status Have you recieved a Covid-19 vaccination: Yes [employer]: Moderna - Vaccination Dates Date of 2cond Vaccination (if applicable): 08/07/20 - Past Medical History Pertinent Past Medical History: Yes Neurological History: Seizures, Stroke ENT History: No Pertinent History Cardiac History: Coronary Artery Disease, Hypertension, Myocardial Infarction ([place]) Respiratory History: No Pertinent History Endocrine Medical History: Diabetes Type II, Hypothyroidism Musculoskeletal History: No Pertinent History GI Medical History: Gallbladder Disease History: No Pertinent History Psycho-Social History: Depression Male Reproductive Disorders: No Pertinent History Other Medical History: CABG (2010), Anxiety, Depression - Past Surgical History Past Surgical History: Yes Neuro Surgical History: Neurological Surgery Cardiac: CABG Respiratory: No Pertinent History Gastrointestinal: Cholecystectomy Genitourinary: No Pertinent History Musculoskeletal: No Pertinent History Male Surgical History: No Pertinent History - Social History Smoking Status: Never smoker How long have you smoked: years Exposure to second hand smoke: No Drug Use: none Patient Lives Alone: No - Nursing Vital Signs Nursing Vital Signs: Initial Vital Signs Temperature 98.8 F 12/16/21 20:10 Pulse Rate 71 12/16/21 20:10 Respiratory Rate 16 12/16/21 20:10 Blood Pressure 163/91 12/16/21 20:10 O2 Sat by Pulse Oximetry 94 L 12/16/21 20:10 Pain Scale Pain Intensity 10 - Physical Exam SpO2: 95 - Course Nursing assessment & vital signs reviewed: Yes - Radiology Exams Elbow X-ray Interpretation: Interpreted by me (Spur at olecranon. Soft tissue swelling. Negative fat pad sign. No fracture dislocations.) Shoulder X-ray Interpretation: Interpreted by me (Humeral head fracture osteopenia soft tissue swelling) Ordered Tests: Active Orders 24 hr Category Date Time Status ELBOW (2 VIEW) Stat Exams 12/16/21 20:27 Taken SHOULDER Stat Exams 12/16/21 20:29 Taken Medication Summary Discontinued Medications Generic Name Dose Route Start Last Admin Trade Name Vicky PRN Reason Stop Dose Admin Acetaminophen 1,000 mg 12/16/21 21:17 12/16/21 21:21 Acetaminophen 500 Mg Tablet PO 12/16/21 21:18 1,000 mg STAT ONE Administration Acetaminophen Confirm 12/16/21 21:19 Acetaminophen 500 Mg Tablet Administered 12/16/21 21:20 Dose 1,000 mg .ROUTE .STK-MED ONE Diphtheria/Tetanus/Acell Pertussis 0.5 ml 12/16/21 20:34 12/16/21 21:21 Tdap --Diph,Pertuss(Acell),Tet Vac/Pf 0.5 Ml Vial IM 12/16/21 20:35 0.5 ml .ONCE ONE Administration Diphtheria/Tetanus/Acell Pertussis Confirm 12/16/21 21:19 Tdap --Diph,Pertuss(Acell),Tet Vac/Pf 0.5 Ml Vial Administered 12/16/21 21:20 Dose 0.5 ml IM .STK-MED ONE - Departure Referrals: DYLON HALE MD [Primary Care Provider] - Follow up/PCP as directed
--- NOTE | 2021-12-16 22:21 | ERPHSYRPT ---
- History of Present Illness Time Seen by Provider: 12/16/21 20:15 Source: patient Exam Limitations: no limitations Patient Subjective Stated Complaint: pt states he fell on the concrete floor and thinks he may have broken his arm. bleeding from lt elbow Triage Nursing Assessment: pt alert and oriented, answers questions. pt back per wheelchair. transfers to stretcher with assist of 2. unsteady gait noted. family states is his normal. skin tears to lt elbow with active bleeding noted. pt holding lt arm against his side and states pain is in his lt shoulder. Physician History: Patient is a 66-year-old male presents to our ED for evaluation of a fall. Patient has a history of a stroke and requires a walker. However patient refuses to use a walker. Patient is therefore a fall risk. Patient states he was not using his walker today when he lost his balance and fell. The fall was not associated with any neurologic or cardiovascular symptomology. No chest pain or shortness of breath. No numbness tingling or weakness. Patient complains of pain at the left elbow and left shoulder. No BHT or LOC. No neck pain. Cervical spine cleared clinically. Pain at left elbow and left shoulder described as an ache that is localized. No radiation. Patient otherwise ambulatory. Patient voices no other complaints or concerns at this time Occurred: just prior to arrival Method of Injury: fell Quality: constant Severity of Pain-Max: moderate Severity of Pain-Current: mild Extremities Pain Location: shoulder: left, elbow: left Modifying Factors: Improves With: movement Associated Symptoms: none Allergies/Adverse Reactions: Penicillins Allergy (Severe, Verified 03/26/19 11:26) Hives morphine Adverse Reaction (Mild, Verified 03/26/19 11:26) "makes me loopy" Home Medications: Clopidogrel Bisulfate [PLAVIX 75 MG Tablet] 75 mg PO DAILY 02/06/16 [History] Insulin Aspart [Novolog Flexpen] 5 unit SQ TID 02/06/16 [History] Aspirin [Aspirin EC] 81 mg PO DAILY 02/14/18 [History] Atorvastatin Calcium [Lipitor] 40 mg PO HS 08/28/18 [History] Escitalopram Oxalate [Lexapro] 20 mg PO DAILY 08/28/18 [History] Levothyroxine Sodium 50 Mcg [Synthroid 50 Mcg] 50 mcg PO DAILY 08/28/18 [History] levETIRAcetam [Levetiracetam] 500 mg PO BID 08/28/18 [History] Hx Tetanus, Diphtheria Vaccination/Date Given: No Hx Influenza Vaccination/Date Given: No Hx Pneumococcal Vaccination/Date Given: No Immunizations Up to Date: Yes Travel Risk - International Travel Have you traveled outside of the country in past 3 weeks: No - Coronavirus Screening Are you exhibiting any of the following symptoms?: No Close contact with a COVID-19 positive Pt in past 14-21 Days: No - Vaccine Status Have you recieved a Covid-19 vaccination: Yes [employer]: Moderna - Vaccination Dates Date of 2cond Vaccination (if applicable): 08/07/20 - Review of Systems Constitutional: No Symptoms, No Fever, No Chills Eyes: No Symptoms Ears, Nose, & Throat: No Symptoms Respiratory: No Symptoms, No Cough, No Dyspnea Cardiac: No Symptoms, No Chest Pain, No Edema, No Syncope Abdominal/Gastrointestinal: No Symptoms, No Abdominal Pain, No Nausea, No Vomiting, No Diarrhea Genitourinary Symptoms: No Symptoms, No Dysuria Musculoskeletal: No Symptoms, No Back Pain, No Neck Pain Skin: No Symptoms, No Rash Neurological: No Symptoms, No Dizziness, No Focal Weakness, No Sensory Changes Psychological: No Symptoms Endocrine: No Symptoms Hematologic/Lymphatic: No Symptoms Immunological/Allergic: No Symptoms All Other Systems: Reviewed and Negative - Past Medical History Pertinent Past Medical History: Yes Neurological History: Seizures, Stroke ENT History: No Pertinent History Cardiac History: Coronary Artery Disease, Hypertension, Myocardial Infarction ([place]) Respiratory History: No Pertinent History Endocrine Medical History: Diabetes Type II, Hypothyroidism Musculoskeletal History: No Pertinent History GI Medical History: Gallbladder Disease History: No Pertinent History Psycho-Social History: Depression Male Reproductive Disorders: No Pertinent History Other Medical History: CABG (2009), Anxiety, Depression - Past Surgical History Past Surgical History: Yes Neuro Surgical History: Neurological Surgery Cardiac: CABG Respiratory: No Pertinent History Gastrointestinal: Cholecystectomy Genitourinary: No Pertinent History Musculoskeletal: No Pertinent History Male Surgical History: No Pertinent History - Social History Smoking Status: Never smoker How long have you smoked: years Exposure to second hand smoke: No Drug Use: none Patient Lives Alone: No - Nursing Vital Signs Nursing Vital Signs: Initial Vital Signs Temperature 98.8 F 12/16/21 20:10 Pulse Rate 71 12/16/21 20:10 Respiratory Rate 16 12/16/21 20:10 Blood Pressure 163/91 12/16/21 20:10 O2 Sat by Pulse Oximetry 94 L 12/16/21 20:10 Pain Scale Pain Intensity 10 - Physical Exam General Appearance: no apparent distress, alert Eyes, Ears, Nose, Throat Exam: normal ENT inspection, TMs normal, pharynx normal, moist mucous membranes Neck Exam: normal inspection, non-tender, supple, full range of motion Cardiovascular/Respiratory Exam: chest non-tender, normal breath sounds, regular rate/rhythm, heart sounds normal, no respiratory distress Abdominal Exam: non-tender, No guarding Back Exam: normal inspection, No vertebral tenderness Shoulder Exam: bone tenderness, limited ROM (Limited range of motion.), pain, swelling (Left shoulder swelling) Elbow/Forearm Exam: bone tenderness, limited ROM, soft tissue tenderness, swelling (Skin tear at olecranon) Wrist Exam: normal inspection, non-tender, no evidence of injury, normal ROM Hand Exam: normal inspection, non-tender, no evidence of injury, normal ROM Neuro/Tendon Exam: normal sensation, normal motor functions, normal tendon fun ctions Mental Status Exam: alert, oriented x 3, cooperative Skin Exam: normal color, warm, dry, other (2 skin tears to the olecranon. These tears are not amendable to suture repair. Local wound care only) SpO2 Interpretation: normal SpO2: 95 O2 Delivery: Room Air - Course Nursing assessment & vital signs reviewed: Yes - Radiology Exams Shoulder X-ray Interpretation: Interpreted by me (Humeral head fracture, osteopenia, soft tissue swelling) Elbow X-ray Interpretation: Interpreted by me (Spur at olecranon, soft tissue swelling, negative fat pad sign. No fracture or dislocation) Ordered Tests: Active Orders 24 hr Category Date Time Status ELBOW (2 VIEW) Stat Exams 12/16/21 20:27 Taken SHOULDER Stat Exams 12/16/21 20:29 Taken Medication Summary Discontinued Medications Generic Name Dose Route Start Last Admin Trade Name Yadielq PRN Reason Stop Dose Admin Acetaminophen 1,000 mg 12/16/21 21:17 12/16/21 21:21 Acetaminophen 500 Mg Tablet PO 12/16/21 21:18 1,000 mg STAT ONE Administration Acetaminophen Confirm 12/16/21 21:19 Acetaminophen 500 Mg Tablet Administered 12/16/21 21:20 Dose 1,000 mg .ROUTE .STK-MED ONE Diphtheria/Tetanus/Acell Pertussis 0.5 ml 12/16/21 20:34 12/16/21 21:21 Tdap --Diph,Pertuss(Acell),Tet Vac/Pf 0.5 Ml Vial IM 12/16/21 20:35 0.5 ml .ONCE ONE Administration Diphtheria/Tetanus/Acell Pertussis Confirm 12/16/21 21:19 Tdap --Diph,Pertuss(Acell),Tet Vac/Pf 0.5 Ml Vial Administered 12/16/21 21:20 Dose 0.5 ml IM .STK-MED ONE Morphine Sulfate 4 mg 12/16/21 22:08 Morphine Sulfate 2 Mg/Ml Inj IM 12/16/21 22:09 STAT ONE - Progress Progress: improved Progress Note: Findings discussed with patient. We advised transfer to orthopedic service. Patient did not want to be transferred. Patient requested discharge with orthopedic follow-up. Patient's left upper extremity placed in a sling. Patient given Tylenol and morphine for pain control. Pain well controlled at this time. Minimal pain at rest. [place] pills given for patient to take home. Patient was also given an orthopedic clinic follow-up appointment. Patient will be going home with his brother. Patient voices no other complaints or concerns at this time. Patient is aware that he has a fracture of his left shoulder. Portions of this note were created with voice recognition technology. There may be grammatical, spelling, punctuation or sound alike errors 12/16/21 22:26 Counseled pt/family regarding: diagnosis, need for follow-up, rad results - Departure Departure Disposition: Home Clinical Impression: Fall, Shoulder fracture, left, Elbow contusion, Skin tear Condition: Stable Critical Care Time: No Referrals: DYLON HALE MD [Primary Care Provider] - Follow up/PCP as directed Additional Instructions: Discharge/Care Plan FARIBA LOZANO was seen on 12/16/21 in the Emergency Room. The patient was counseled regarding Diagnosis,Lab results, Imaging studies, need for follow up and when to return to the Emergency Room. Prescriptions given: Discharge Note I have spoken with the patient and/or caregivers. I have explained the patient's condition, diagnosis and treatment plan based on the information available to me at this time. I have answered the patient's and/or caregiver's questions and addressed any concerns. The patient and/or caregivers have as good understanding of the patient's diagnosis, condition and treatment plan as can be expected at this point. The vital signs have been stable. The patient's condition is stable and appropriate for discharge from the emergency department. The patient will pursue further outpatient evaluation with the primary care physician or other designated or consulting physician as outlined in the discharge instructions. The patient and/or caregivers are agreeable to this plan of care and follow-up instructions have been explained in detail. The patient and/or caregivers have received these instruction. The patient/and or caregivers are aware that any significant change in condition or worsening of symptoms should prompt an immediate return to this or the closest emergency department or call 911. Outpatient Orders: Ortho Referral Time Frame: 1 Day, Facility: [facility], Location: [facility]
[2021-12-16] MEDS ORDERED: NORCO 5/325 MG ONE (22:36)
[2021-12-16] MEDS ORDERED: MORPHINE SULFATE 2 MG INJ ONE (22:37)
[2021-12-16] MEDS ORDERED: MORPHINE SULFATE 4 MG INJ ONE (22:42)
[2021-12-16] MEDS: MORPHINE SULFATE 2 MG INJ IM ONE (22:43)
[2021-12-16] MEDS: NORCO 5/325 MG PO ONE (22:49)
[2021-12-16 23:44] LABS: Absolute Neutrophil Ct (ANC) 9.09 x10^3/uL (1.4-6.9); Basophil (Absolute #) 0.03 x10^3/uL (0-0.4); Eosinophil % 0.3 % (0.00-5.0); Eosinophil (Absolute #) 0.03 x10^3/uL (0-0.5); Hematocrit 38.7 % (42-50); Hemoglobin 13.3 g/dL (12.5-18.0); Lymphocyte (Absolute #) 0.86 x10^3/uL (1.0-4.6); Lymphocytes % 8.1 % (24.0-44.0); Mean Corpuscular Hemoglobin 30.6 pg (26-32); Mean Corpuscular Hgb Concent. 34.4 g/dL (32-36); Mean Platelet Volume 10.2 fL (7.5-11.0); Monocyte (Absolute #) 0.63 x10^3/uL (0.0-1.3); Monocytes % 5.9 % (0.0-12.0); Platelet Count 195 x10^3/uL (150-450); Red Blood Count 4.35 x10^6/uL (4.1-5.6); Red Cell Distribution Width 12.8 % (11.5-14.0); White Blood Count 10.7 x10^3/uL (4.0-10.5)
[2021-12-16 23:57] LABS: ALBUMIN 3.5 g/dL (3.5-5.0); ALKALINE PHOSPHATASE 82 U/L (38-126); ANION GAP 12.2 MEQ/L (5-15); BLOOD UREA NITROGEN 29 mg/dL (9-20); CHLORIDE 102 mmol/L (98-107); Calcium 8.9 mg/dL (8.4-10.2); Carbon Dioxide 25 mmol/L (22-30); Creatinine 1 0.97 mg/dL (0.66-1.25); EST GLOMERULAR FILTRATION RATE > 60.0 ML/MIN; Glucose 197 mg/dL (74-106); Potassium 3.3 mmol/L (3.5-5.1); SGOT/AST 33 U/L (17-59); SGPT/ALT 58 U/L (0-50); SODIUM 135 mmol/L (137-145); Total Protein 6.2 g/dL (6.3-8.2)
[2021-12-17 01:23] VITALS: BP 101/61; PULSE 64; O2SAT 95
--- NOTE | 2021-12-17 08:43 | XRAY ---
Indication: Pain following fall. Fracture. Comparison: September 30, 2020. 3 view left shoulder now demonstrates impacted humeral head/neck fracture with soft tissue swelling. Stable osteopenia, moderate AC degenerative arthropathy, small heterotopic ossifications, and sternotomy wires.
--- NOTE | 2021-12-17 08:43 | XRAY ---
Indication: Pain following fall. Comparison: None 2 view left elbow demonstrates osteopenia, small olecranon process spur, and posterior soft tissue swelling. No other bony, articular, or soft tissue abnormalities.
== END 2021-12-17 01:52 | disposition short-term general hospital (02) ==
LOC: ED 20:07
DX: S42.292A Other displaced fracture of upper end of left humerus, initial encounter for closed fracture (principal); S50.02XA Contusion of left elbow, initial encounter; S51.012A Laceration without foreign body of left elbow, initial encounter; W18.39XA Other fall on same level, initial encounter; Z91.81 History of falling; M25.522 Pain in left elbow; M25.512 Pain in left shoulder; I10 Essential (primary) hypertension; E11.9 Type 2 diabetes mellitus without complications; Z79.02 Long term (current) use of antithrombotics/antiplatelets; Z79.899 Other long term (current) drug therapy; R55 Syncope and collapse; E87.6 Hypokalemia; E87.1 Hypo-osmolality and hyponatremia
CPT/HCPCS: 36000; 36415; 73030; 73070; 80053; 82947; 85025; 90471; 90715; 96372; 99285; J2270; A9270-GY